=== PATIENT | male | born 1960 | race African-American/Black ===

== ENCOUNTER 2017-07-09 09:16 | Inpatient (IN) | payer MEDICARE ==
[2017-07-09 10:07] LABS: PTT 30.9 SEC (22.9-36.1); Prothrombin Time 13.5 SEC (12.0-14.7)
[2017-07-09 10:08] LABS: #Basophils 0.1 thou/uL (0.0-0.2); #Eosinphils 0.5 thou/uL (0.0-0.7); #Lymphocytes 1.9 thou/uL (1.20-3.40); #Monocytes 0.6 thou/uL (0.11-0.59); #Neutrophils 3.5 thou/uL (1.40-6.50); %Basophils 1.1 % (0.0-1.0); %Eosinophils 8.2 % (0.0-10.0); %Lymphocytes 28.8 % (21.0-51.0); %Monocytes 8.6 % (0.0-10.0); %Neutrophils 53.3 % (42.0-75.0); Mean Corpuscular HGB CONC 31.8 g/dL (32.0-36.0); Mean Corpuscular Hemoglobin 27.2 pg (27.0-31.0); Mean Corpuscular Volume 85.5 fl (80.0-94.0); Mean Platelet Volume 7.9 fL (7.4-10.4); Platelet Count 232 thou/uL (130-400); RBC Distribution Width 13.1 % (11.5-14.5); Red Blood Cell (RBC) Count 3.67 mill/uL (4.70-6.10); White Blood Cell (WBC) Count 6.5 thou/uL (4.8-10.8)
[2017-07-09 10:20] LABS: ALT (SGPT) Less than 7 U/L (8-55); AST (SGOT) 17 U/L (5-34); Albumin 3.3 g/dL (3.5-5.0); Alkaline Phosphatase 53 U/L (40-150); Anion Gap 18 mmol/L (10-20); BUN (Urea Nitrogen) 73 mg/dL (8.4-25.7); Bilirubin, Total 0.2 mg/dL (0.2-1.2); CK (CPK) 694 U/L (30-200); Calc. Creatinine Clearance 0 mL/min (70-130); Calcium 8.6 mg/dL (7.8-10.44); Carbon Dioxide 16 mmol/L (22-29); Chloride 109 mmol/L (98-107); Estimated GFR-MDRD 6; Globulin 3.2 g/dL (2.4-3.5); Glucose 159 mg/dL (70-105); Potassium 4.5 mmol/L (3.5-5.1); Protein, Total 6.5 g/dL (6.0-8.3); Sodium 138 mmol/L (136-145)
--- NOTE | 2017-07-09 10:30 | ULT ---
BILATERAL RENAL ULTRASOUND: HISTORY: Renal tear. COMPARISON: None. TECHNIQUE: Real-time moon scale and color evaluation of kidneys performed with a curvilinear transducer. FINDINGS: The right kidney measures 10 x 5 x 5.4 cm without mass, hydronephrosis, or calcifications. The prevo id urinary bladder volume is 205 mL. The left kidney measures 10.6 x 5.5 x 5 cm without mass, hydron ephrosis, or abnormal calcification. IMPRESSION: No evidence of obstructive uropathy. POS: [facility]
[2017-07-09 10:49] LABS: Bilirubin Negative (Negative); Blood, Urine Small (Negative); Glucose, Urine (Dipstick) 100 mg/dL (Negative); Leukocyte Negative (Negative); Nitrite Negative (Negative); Protein, Urine (Dipstick) > or equal to 300 mg/dL (Neg-Trace); Urobilinogen 0.2 mg/dL (0.2-1.0)
[2017-07-09 10:57] LABS: Clarity CLEAR (Clear)
[2017-07-09 10:58] LABS: WBC/HPF 0-3 HPF (0-3)
[2017-07-09 10:59] LABS: Bacteria/HPF 1+ HPF (None Seen); Hyaline Casts/LPF NONE SEEN LPF (0-3 Hyaline)
--- NOTE | 2017-07-09 13:23 | HP ---
CHIEF COMPLAINT: Abnormal labs. HISTORY OF PRESENT ILLNESS: This is a 56-year-old pleasant gentleman who was apparently in his usual state of health came into the hospital because he was sent by Dr. Ortiz because of abnormal kidney function. His creatinine had almost doubled and today the values are around 10. So he is going to be admitted for acute on chronic kidney disease and further management of that. He denies any fever, chills, diarrhea, dysuria, polyuria, or abdominal pain at this point. PAST MEDICAL HISTORY: Significant for hyperlipidemia, hypertension, diabetes, CVA with residual righ t-sided hemiparesis. PAST SURGICAL HISTORY: Significant for some kind of neck surgery. ALLERGIES: TRAMADOL. SOCIAL HISTORY: Does not smoke, drink or do recreational drugs. FAMILY HISTORY: Negative for diabetes and hypertension. MEDICATIONS: Please see MAR. REVIEW OF SYSTEMS: Significant for no fever, no chills, no headache, no appetite, no hearing loss, n o latencies. No cough, no chest pain, diarrhea, dysuria, or polyuria. No memory or mood changes. N o neck pain. PHYSICAL EXAMINATION: VITAL SIGNS: Blood pressure 179/59, pulse is 84, respirations 18, satting 98% on room air. GENERAL: The patient is lying in bed, no apparent distress. HEENT: Atraumatic and normocephalic. Pupils are equal, round, react to light. Extraocular movement s intact. Mucous membranes are moist. NECK: No JVD. CHEST: Breath sounds heard. There are no rales or rhonchi. HEART: S1, S2, no murmurs or gallops. ABDOMEN: Soft. EXTREMITIES: No cyanosis, clubbing, edema. Distal pulses present. NEUROLOGIC: Alert, awake, oriented. No cranial deficits. No sensorimotor deficits. LABORATORY DATA AND IMAGING DATA: Creatinine is 10. Potassium is 4.5. WBC count is 6.5, hemoglobin is 10. Renal ultrasound shows no evidence of obstructive uropathy. ASSESSMENT AND PLAN: 1. Acute renal failure on chronic kidney disease. 2. Gentle hydration. Follow with Dr. Ortiz's pain. 3. Diabetes mellitus put patient on insulin sliding scale. 4. Hypertension, stable. 5. Hyperlipidemia, stable. 6. Cerebrovascular accident with residual right-sided hemiparesis, stable. 7. Sequential compression devices for deep venous thrombosis prophylaxis. I will work with Dr. Siva edwards in further caring for the patient.
[2017-07-09] MEDS ORDERED: Acetaminophen 325 MG TAB PO PRN ×2 (14:37→14:41)
[2017-07-09] MEDS ORDERED: Ondansetron ODT 4 MG TAB SL PRN (14:37)
[2017-07-09] MEDS ORDERED: Ondansetron HCl/PF 4 MG/2 ML Vial IVP PRN ×2 (14:37→14:41)
[2017-07-09] MEDS ORDERED: Sodium Chloride 0.9% 1,000 ML IV SCH ×2 (14:37→14:41)
[2017-07-09] MEDS ORDERED: Dextrose 5% in Water 1,000 ML IV PRN (14:41)
[2017-07-09] MEDS ORDERED: Calcium Carbonate 500 MG ChewTAB PO PRN (14:41)
[2017-07-09] MEDS ORDERED: Dextrose 50% Abboject 50 ML SYRINGE SLOW IVP PRN (14:41)
[2017-07-09] MEDS: Sodium Chloride 0.9% 1,000 ML IV SCH ×2 (15:13→22:16)
[2017-07-09 15:15] LABS: Hemoglobin A1c 6.3 % (4.0-6.0)
[2017-07-09 15:43] VITALS: BMI 27.2
[2017-07-09 15:56] LABS: Bilirubin Negative (Negative); Blood, Urine Small (Negative); Clarity CLEAR (Clear); Glucose, Urine (Dipstick) 250 mg/dL (Negative); Leukocyte Negative (Negative); Nitrite Negative (Negative); Protein, Urine (Dipstick) > or equal to 300 mg/dL (Neg-Trace); Specific Gravity, Urine 1.021 (1.002-1.036); Urobilinogen 0.2 mg/dL (0.2-1.0); pH, Urine 6.5 (5.0-9.0)
[2017-07-09 16:00] LABS: Bacteria/HPF None Seen HPF (None Seen); Hyaline Casts/LPF 0-3 HYALINE CAST LPF (0-3 Hyaline); Pathc Cast-AUWi Flag 0.13 (0-2.49); Squamous Epithelial 0-3 HPF (0-3)
[2017-07-09 16:12] LABS: Creatinine, Urine 56.5 mg/dL (63-166); Potassium, Urine 22.6 mmol/L
[2017-07-09] MEDS: Docusate 100 MG CAP PO SCH (22:15)
[2017-07-09] MEDS: cloNIDine 0.1 MG TAB PO PRN (22:15)
[2017-07-09] MEDS: Insulin Detemir 100 UNITS/ML 5 UNITS in Pre-Filled Syringe 1 EACH SC SCH (22:50)
--- NOTE | 2017-07-09 23:16 | ULT ---
VEIN MAPPING OF UPPER EXTREMITIES FOR DIALYSIS ACCESS: 07/09/17 HISTORY: Right arm paralyzed due to stroke. Partially contracted. Dialysis access. COMPARISON: None. TECHNIQUE: Correia scale, color flow, doppler imaging with spectral waveform analysis performed at the left and rig ht upper extremity arterial venous system. RIGHT UPPER EXTREMITY BRACHIAL ARTERY: 4.0 mm RADIAL ARTERY: 2.2 mm ULNAR ARTERY: 2.0 mm CEPHALIC VEIN Proximal Humerus: 4.3 mm Mid Humerus: 3.4 mm Distal Humerus: 4.1 mm Antecubital Fossa: 4.5 mm Proximal Forearm: 2.9 mm Mid Forearm: 2.1 mm Distal Forearm: 1.6 mm BASILIC VEIN Proximal Humerus: 7.8 mm Mid Humerus: 4.7 mm Distal Humerus: 4.3 mm Antecubital Fossa: 5.2 mm Proximal Forearm: 1.4 mm Mid Forearm: 1.0 mm Distal Forearm: Not seen LEFT UPPER EXTREMITY BRACHIAL ARTERY: 5.1 mm RADIAL ARTERY: 2.4 mm ULNAR ARTERY: 2.7 mm CEPHALIC VEIN Proximal Humerus: 1.1 mm Mid Humerus: 1.5 mm Distal Humerus: 2.1 mm Antecubital Fossa: 3.3 mm Proximal Forearm: 2.9 mm Mid Forearm: 2.6 mm Distal Forearm: 1.7 mm BASILIC VEIN Proximal Humerus: 6.5 mm Mid Humerus: 4.9 mm Distal Humerus: 4.8 mm Antecubital Fossa: 6.6 mm Proximal Forearm: 2.4 mm Mid Forearm: 2.1 mm Distal Forearm: 2.4 mm IMPRESSION: Venous mapping as above. POS: [facility]
--- NOTE | 2017-07-10 00:41 | CON ---
DATE OF CONSULTATION: 07/09/2017 CONSULTING PHYSICIAN: Arslan Mejia MD REASON FOR CONSULTATION: Abnormal labs. HISTORY OF PRESENT ILLNESS: A 56-year-old male who was found to have abnormal labs and was sent to [facility]. The patient is having worsening renal function. No chest pain, palpitation, no shortness of breath, no nausea, vomiting, no recent injury, but he has been having worsening renal function. He h as a significant amount of proteinuria, most likely from diabetes. PAST MEDICAL HISTORY: Positive for chronic kidney disease, stage 5; hyperlipidemia; hypertension, ty pe 2 diabetes; CVA. PAST SURGICAL HISTORY: Neck surgery. HOME MEDICATIONS: Pending. ALLERGIES: TRAMADOL. SOCIAL HISTORY: No smoking, alcohol, or illicit drugs abuse. FAMILY HISTORY: Positive for diabetes. REVIEW OF SYSTEMS: The following complete review of systems was negative, unless otherwise mentioned in the HPI or below: Constitutional: Weight loss or gain, ability to conduct usual activities. Sk in: Rash, itching. Eyes: Double vision, pain. ENT/Mouth: Nose bleeding, neck stiffness, pain, te nderness. Cardiovascular: Palpitations, dyspnea on exertion, orthopnea. Respiratory: Shortness of breath, wheezing, cough, hemoptysis, fever or night sweats. Gastrointestinal: Poor appetite, abdom inal pain, heartburn, nausea, vomiting, constipation, or diarrhea. Genitourinary: Urgency, frequenc y, dysuria, nocturia. Musculoskeletal: Pain, swelling. Neurologic/Psychiatric: Anxiety, depressio n. Allergy/Immunologic: Skin rash, bleeding tendency. PHYSICAL EXAMINATION: GENERAL: This is a well-built male, in no apparent distress. VITAL SIGNS: Temperature 97.9, pulse 85, respiratory rate 18, blood pressure 170/88. HEENT: Atraumatic, normocephalic. Oral mucosa is moist. NECK: Supple, no masses. CARDIOVASCULAR: S1, S2 heart. Rate and rhythm regular. RESPIRATORY: Clear to auscultation. GENITOURINARY: Abdomen is soft. MUSCULOSKELETAL: No tenderness or edema. DERMATOLOGIC: No skin rash. NEUROLOGIC: Alert, awake. PSYCHIATRIC: Mood and affect normal. LABORATORY DATA: Hemoglobin is 10.0, potassium is 4.5, BUN is 73, creatinine is 10.7. ASSESSMENT AND PLAN: 1. Acute kidney injury on chronic kidney disease, stage 5. Renal function with worsening. I agree with hydration and check renal ultrasound to rule out obstruction. If no significant improvement wit h hydration, patient might need renal replacement therapy, need a catheter placement in the morning. 2. We will keep him n.p.o. after midnight. 3. Acidosis, severe, most likely from renal failure. 4. Anemia, mild. 5. Hypoalbuminemia. 6. Significant proteinuria. 7. Diabetic nephropathy. 8. Edema, controlled. 9. Hypertension. Continue to titrate medications. Plan is to hydrate the patient with no significant improvement in renal function, we will arrange for dialysis. We will continue to follow.
[2017-07-10] MEDS: cloNIDine 0.1 MG TAB PO PRN ×2 (04:03→09:53)
[2017-07-10 04:44] LABS: Albumin 2.6 g/dL (3.5-5.0); Anion Gap 15 mmol/L (10-20); BUN (Urea Nitrogen) 68 mg/dL (8.4-25.7); BUN/Creatinine Ratio 6.45; Calc. Creatinine Clearance 9 mL/min (70-130); Calcium 7.9 mg/dL (7.8-10.44); Carbon Dioxide 15 mmol/L (22-29); Chloride 111 mmol/L (98-107); Estimated GFR-MDRD 6; Glucose 123 mg/dL (70-105); Phosphorus 6.5 mg/dL (2.3-4.7); Potassium 4.4 mmol/L (3.5-5.1); Sodium 137 mmol/L (136-145)
[2017-07-10 04:58] LABS: #Basophils 0.1 thou/uL (0.0-0.2); #Eosinphils 0.5 thou/uL (0.0-0.7); #Lymphocytes 2.1 thou/uL (1.20-3.40); #Monocytes 0.6 thou/uL (0.11-0.59); #Neutrophils 2.6 thou/uL (1.40-6.50); %Basophils 1.4 % (0.0-1.0); %Eosinophils 8.6 % (0.0-10.0); %Lymphocytes 35.9 % (21.0-51.0); %Monocytes 10.8 % (0.0-10.0); %Neutrophils 43.4 % (42.0-75.0); Hemoglobin 8.7 g/dL (14.0-18.0); Mean Corpuscular HGB CONC 31.6 g/dL (32.0-36.0); Mean Corpuscular Hemoglobin 27.2 pg (27.0-31.0); Mean Corpuscular Volume 86.1 fl (80.0-94.0); Mean Platelet Volume 8.2 fL (7.4-10.4); Platelet Count 222 thou/uL (130-400); RBC Distribution Width 13.1 % (11.5-14.5); Red Blood Cell (RBC) Count 3.19 mill/uL (4.70-6.10); White Blood Cell (WBC) Count 5.9 thou/uL (4.8-10.8)
[2017-07-10] MEDS ORDERED: Heparin 10,000 UNITS/ 10 ML VIAL ONE (06:46)
[2017-07-10] MEDS ORDERED: Ondansetron HCl/PF 4 MG/2 ML Vial ONE (06:46)
[2017-07-10] MEDS ORDERED: PROPOFOL 200 MG/20 ML VIAL ONE (06:46)
[2017-07-10] MEDS ORDERED: CEFAZOLIN/Water 2 GM/20 ML SYRINGE SLOW IVP SCH (08:15)
--- NOTE | 2017-07-10 09:12 | PRG ---
DATE OF SERVICE: 07/10/2017 SUBJECTIVE: This is a 56-year-old gentleman being seen for CKD stage 5. The patient denies any naus ea or vomiting, but has poor appetite. PHYSICAL EXAMINATION: GENERAL: Patient is awake, alert. VITAL SIGNS: Afebrile, pulse 76, breathing at 16, blood pressure 141/68. HEAD/NECK: Normocephalic. Atraumatic. EYES: EOMI. No deformity. EARS: Clear. No ulcers. NOSE: Intact. No lesions. MOUTH: Clear. No discharge. THROAT: Clear. No exudate. LUNGS: Clear. No crackles. CARDIAC: S1, S2. No rub. ABDOMEN: Benign. BS+. GENITALIA/RECTUM: Mora absent. BACK/EXTREMITIES: Edema 0+ Ulcer- NEUROLOGICAL: Alert and motor intact. SKIN: Rash- Bruise- LYMPHATICS: Edema- Ulcer- LABORATORY DATA: Show hemoglobin 8.7, bicarbonate 15, creatinine 10.5. ASSESSMENT AND PLAN: 1. Chronic kidney disease stage 5, glomerular filtration rate and poor appetite. We will plan dialy sis. 2. Acidosis, plan dialysis. 3. Hypertension, plan ultrafiltration. 4. Anemia, stable. Risks versus benefits of dialysis were discussed and dialysis will be initiated after catheter will be placed. The patient has consented.
[2017-07-10] MEDS: Insulin Detemir 100 UNITS/ML 5 UNITS in Pre-Filled Syringe 1 EACH SC SCH ×2 (09:13→20:31)
[2017-07-10] MEDS: Docusate 100 MG CAP PO SCH ×2 (09:13→20:30)
--- NOTE | 2017-07-10 10:04 | HP ---
HISTORY OF PRESENT ILLNESS: Mr. Terell Jensen is a 56-year-old black male, disabled from cervical spi ne after cervical spine surgery many years ago and from his prior stroke in 2006 left him with a righ t hemiparesis. He is able to walk with an ankle brace, but has a permanent weakness of his right arm and he is unable to use his right hand. He was right handed prior to this stroke, but now he is melanie dawood depended on his left arm. He has a diabetic and hypertensive nephropathy leading to chronic k idney disease and end-stage renal disease. I have been consulted by Dr. Frias and Dr. Ortiz to see him regarding dialysis access. Patient has an IV in his left hand. GFR is 10. Plan is to place a r ight arm fistula and/or less likely prosthetic graft. We would plan to place a hemodialysis catheter and possible central line. The patient understands the risk and benefits of this and consents. ALLERGIES: TRAMADOL, pruritus. TOBACCO: None. ALCOHOL: None. MEDICATIONS: None listed. He is as an outpatient. In the hospital, he take insulin b.i.d., Colace, clonidine 0.1 mg q.6 hours p.r.n., calcium carbonate 1000 mg p.o. q.4 hours p.r.n., Tylenol p.r.n., sliding scale insulin, Zofran. PAST SURGICAL HISTORY: Cervical spine surgery. He had a colonoscopy in 2012 that was normal. Chron ic kidney disease, diabetes mellitus since 29 years of age, hypertension, prior stroke in 2006 left h im with a right hemiparesis, ambulating with a right ankle brace and unable to use his right arm effe ctively and is permanently contracted and he is unable to extend his fingers or thumb completely. REVIEW OF SYSTEMS: Ten point noncontributory. No history of cardiac problems. PHYSICAL EXAMINATION: VITAL SIGNS: Temperature 97.8, 74, 176/83. LUNGS: Clear to auscultation. CARDIAC: Regular rate and rhythm without murmur or gallop. ABDOMEN: Soft, nontender, no evident hernias. EXTREMITIES: Weak right upper extremity, permanent disability deformity of his right hand, unable to extend his right fingers and thumb. Palpable radial pulses. IV left hand. No ankle edema. LABORATORY DATA: White count 5, hemoglobin 8.7, sodium 137, potassium 4.4, BUN 68, creatinine 10.55. GFR 6. ASSESSMENT AND PLAN: 1. End-stage renal disease. We will plan placement of right arm fistula. His ultrasound vein mappi ng shows this to be superior veins. 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 Risk of infection, bleeding, reoperation explained. 2. Plan placement of hemodialysis catheter and possible central line. 3. End-stage renal disease. 4. Prior stroke as described. 5. Hypertension. 6. Diabetes mellitus. 7. Colonoscopy in 2012, normal.
[2017-07-10] MEDS ORDERED: Bupivacaine/Epinephrine 0.25% 30 ML VIAL ONE (10:17)
[2017-07-10] MEDS ORDERED: Heparin 5,000 UNITS/ML VIAL ONE (10:17)
[2017-07-10] MEDS ORDERED: Lidocaine 2% PF 5 ML VIAL ONE (10:17)
[2017-07-10] MEDS ORDERED: Heparin 10,000 UNITS/1 ML VIAL ONE (10:19)
[2017-07-10] MEDS ORDERED: Protamine Sulfate 50 MG/5 ML VIAL ONE ×2 (10:19→12:43)
[2017-07-10] MEDS ORDERED: Tuberculin PPD 0.1 ML VIAL I-DERMAL SCH (11:00)
[2017-07-10] MEDS ORDERED: Sodium Chloride 0.9% 10 ML ONE (11:16)
[2017-07-10] MEDS ORDERED: CEFAZOLIN/Water 2 GM/20 ML SYRINGE ONE (11:19)
[2017-07-10] MEDS ORDERED: Fentanyl 100 MCG/2 ML VIAL ONE (11:34)
[2017-07-10] MEDS ORDERED: Acetaminophen 500 MG TAB PO PRN (12:59)
[2017-07-10] MEDS ORDERED: Promethazine HCl 25 MG/ML VIAL SLOW IVP PRN (13:01)
[2017-07-10] MEDS ORDERED: Promethazine HCl 25 MG/ML VIAL IM PRN (13:01)
[2017-07-10] MEDS ORDERED: Ondansetron HCl/PF 4 MG/2 ML Vial IVP PRN (13:01)
--- NOTE | 2017-07-10 13:33 | OP ---
DATE OF PROCEDURE: 07/10/2017 PREOPERATIVE DIAGNOSES: End-stage renal disease with prior stroke and right hemiparesis. POSTOPERATIVE DIAGNOSES: End-stage renal disease with prior stroke and right hemiparesis. PROCEDURE: Placement of right IJ cuffed tunneled hemodialysis catheter, ultrasound fluoroscopy used, right Madonna fistula in cephalic vein to radial artery with outflow calibration 4 mm coronary amy bourne SURGEON: Nadir Licea M.D. ANESTHESIA: LMA. Local 0.25% Marcaine with epinephrine, 30 mL, mixed with 2% Xylocaine, 10 mL. PROCEDURE IN DETAIL: The patient was taken to the operating room where under general LMA anesthesia, neck, chest and right upper extremity was prepared with ChloraPrep, draped in routine fashion. Loca l anesthetic infiltrated into skin and subcutaneous tissue about the operative sites. Using ultrasou nd guidance, right internal jugular vein was cannulated with trocar catheter. J-wire threaded. Troc ar catheter removed. Skin incised and enlarged sharply and stab incision made over the right chest i nfraclavicular and using the tunneling device, precurved angiodynamics precurved dialysis catheter tu nneled between the two incisions, placing the fabric cuff beneath the skin exit site and securing the catheter with 2 interrupted sutures of 3-0 nylon. Smaller and medium sized dilators placed over the J-wire into the internal jugular vein and removed. Dilator and pull-away sheath placed into the sup erior vena cava and dilator and J-wire removed. Catheter placed with a pull-away sheath. Pull-away sheath removed. Platysma approximated with 4-0 Monocryl, skin with subdermal 4-0 Monocryl and DermaG lue applied. Each port aspirated blood and flushed with saline solution and heparinized saline solut ion 1000 units of heparin per mL indicated volume of the port. Sterile dressings applied. The patie nt tolerated the procedure well. Incision was made between the radial artery and cephalic vein and carried down through the skin and s ubcutaneous tissue and the radial artery and cephalic vein dissected free. Stump of the cephalic vei n on the hand side ligated with 4-0 silk tie. Patient given 6000 units of heparin intravenously. Ve in spatulated and interrogated with coronary dilators, passing coronary dilators from a 1.5 to a 4 mm coronary dilator without obstruction. Radial artery was clamped proximally and distally with atraum atic vascular clamp, arteriotomy made sharply and elongated with Garcia scissors for a 2.5 cm anastomo sis created between the end cephalic vein and the radial artery using continuous suture of 6-0 Prolen e. After completing the anastomosis, vascular clamps were released and there was good Doppler signal on the venous outflow in the fistula forearm. Good hemostasis noted. The patient given 25 mg intra venously by Anesthesia. Subcutaneous tissues approximated with 3-0 Monocryl, skin with subdermal 4-0 Monocryl and DermaGlue applied.
--- NOTE | 2017-07-10 14:14 | PDOC.PN ---
- Subjective Encounter Start Date: 07/10/17 Encounter Start Time: 14:13 Patient seen and examined. No new complaints. No overnight events - Objective MAR Reviewed: Yes Vital Signs & Weight: Vital Signs (12 hours) Temp Pulse Resp BP BP Pulse Ox 07/10/17 09:53 194/93 H 07/10/17 08:00 97.8 F 74 14 07/10/17 07:35 97.8 F 74 14 176/83 H 99 07/10/17 06:00 18 07/10/17 04:03 175/68 H 07/10/17 04:00 98 F 77 18 175/84 H Weight Weight 190 lb I&O: 07/09/17 07/10/17 07/11/17 06:59 06:59 06:59 Intake Total 900 Output Total 900 380 Balance 0 -380 Result Diagrams: 07/10/17 03:50 07/10/17 03:50 Additional Labs: Accuchecks 07/09/17 07/09/17 22:43 16:18 POC Glucose 117 H 132 H Phys Exam - Physical Examination Constitutional: NAD HEENT: PERRLA Neck: no JVD Respiratory: no rales Cardiovascular: no significant murmur Gastrointestinal: non-tender Musculoskeletal: pulses present Neurological: normal sensation rt side hemiparesis Psychiatric: A&O x 3 Dx/Plan (1) Renal failure (ARF), acute on chronic Code(s): N17.9 - ACUTE KIDNEY FAILURE, UNSPECIFIED; N18.9 - CHRONIC KIDNEY DISEASE, UNSPECIFIED Status: Acute (2) Diabetes mellitus Code(s): E11.9 - TYPE 2 DIABETES MELLITUS WITHOUT COMPLICATIONS Status: Acute (3) HTN (hypertension) Code(s): I10 - ESSENTIAL (PRIMARY) HYPERTENSION Status: Acute (4) Hyperlipidemia Code(s): E78.5 - HYPERLIPIDEMIA, UNSPECIFIED Status: Acute - Plan * f/u renal plan * going for catheter placement for dialysis
[2017-07-10 15:56] LABS: HBSAg Index 0.21 S/CO (0-0.99); Hep B Surf Ag Non-Reactive S/CO (NonReactive)
--- NOTE | 2017-07-10 16:02 | RAD ---
RADIOGRAPH CHEST 1 VIEW: Date: 07-10-17 Time: 1:16 p.m. HISTORY: 56-year-old male status post central line placement. COMPARISON: 09-27-2009 FINDINGS: There is a new right internal jugular double lumen dialysis catheter with distal tips overlying the u pper SVC and SVC/right subclavian confluence. Another new finding of patchy small airspace density at the medial base of the right lower lobe. Another new finding of transversely oriented density at rig ht mid lung zone, which may represent thickening of the right minor fissure or could represent subseg mental atelectasis. Yet another new finding of moderate sized mass-like opacities at the right latera l mid and lower lung zones, broadly abutting the lateral pleural surface. There are mild focal patchy airspace densities at the medial aspect of the left lower lobe. No cardiomegaly. Lateral costophreni c angles are not effaced. No pulmonary edema. No pneumothorax identified. No mediastinal widening. IMPRESSION: 1. Interval placement of right internal jugular double lumen dialysis catheter. 2. No evidence of pneumothorax. 3. Mild airspace densities at the bases of the bilateral lower lobes, right greater than left. 4. Additional right lateral pleural based densities and a transversely oriented right parahilar densi ty. Etiology of these is uncertain. CT may be useful. KIANNA POS: [facility]
[2017-07-10] MEDS: Sodium Chloride 0.9% 1,000 ML IV SCH (16:13)
[2017-07-10 16:30] LABS: Hep C IgG Ab Reflex HepC Qnt (NonReactive)
[2017-07-10 16:31] LABS: HBSAB Concentration 324.29 mIU/mL; Hep B Core Total Ab Reactive (NonReactive); Hep B Core Total Index 10.72 S/CO (0-0.79); Hep B Surf AB Reactive (NonReactive); Hep C Index 15.11 S/CO (0-0.79)
[2017-07-10] MEDS: hydrALAZINE 20 MG/ML VIAL SLOW IVP PRN (20:30)
[2017-07-11] MEDS: cloNIDine 0.1 MG TAB PO PRN ×3 (04:20→22:27)
[2017-07-11 07:44] LABS: Albumin 2.7 g/dL (3.5-5.0); Anion Gap 17 mmol/L (10-20); BUN (Urea Nitrogen) 71 mg/dL (8.4-25.7); Calc. Creatinine Clearance 9 mL/min (70-130); Carbon Dioxide 15 mmol/L (22-29); Chloride 113 mmol/L (98-107); Estimated GFR-MDRD 6; Glucose 112 mg/dL (70-105); Phosphorus 7.9 mg/dL (2.3-4.7); Potassium 4.5 mmol/L (3.5-5.1); Sodium 140 mmol/L (136-145)
[2017-07-11] MEDS: Docusate 100 MG CAP PO SCH ×2 (09:31→22:26)
[2017-07-11] MEDS: Insulin Detemir 100 UNITS/ML 5 UNITS in Pre-Filled Syringe 1 EACH SC SCH ×2 (09:32→22:26)
--- NOTE | 2017-07-11 10:25 | PDOC.PN ---
- Subjective Encounter Start Date: 07/11/17 Encounter Start Time: 10:24 Patient seen and examined. No new complaints. No overnight events going for dialysis - Objective MAR Reviewed: Yes Vital Signs & Weight: Vital Signs (12 hours) Temp Pulse Resp BP BP Pulse Ox 07/11/17 09:36 180/84 H 07/11/17 05:41 80 171/80 H 07/11/17 04:00 98.6 F 87 16 194/90 H 94 L Weight Weight 190 lb I&O: 07/10/17 07/11/17 07/12/17 06:59 06:59 06:59 Intake Total 900 Output Total 900 1080 Balance 0 -1080 Result Diagrams: 07/10/17 03:50 07/11/17 05:56 Additional Labs: Accuchecks 07/11/17 07/10/17 07/10/17 05:31 20:13 14:15 POC Glucose 110 160 H 122 H Phys Exam - Physical Examination Constitutional: NAD HEENT: PERRLA Neck: no nodes tunnel cath in place Respiratory: no wheezing Cardiovascular: no significant murmur Gastrointestinal: non-tender Musculoskeletal: pulses present Neurological: moves all 4 limbs Psychiatric: A&O x 3 Dx/Plan (1) Renal failure (ARF), acute on chronic Code(s): N17.9 - ACUTE KIDNEY FAILURE, UNSPECIFIED; N18.9 - CHRONIC KIDNEY DISEASE, UNSPECIFIED Status: Acute (2) Diabetes mellitus Code(s): E11.9 - TYPE 2 DIABETES MELLITUS WITHOUT COMPLICATIONS Status: Acute (3) HTN (hypertension) Code(s): I10 - ESSENTIAL (PRIMARY) HYPERTENSION Status: Acute (4) Hyperlipidemia Code(s): E78.5 - HYPERLIPIDEMIA, UNSPECIFIED Status: Acute - Plan * dialysis per renal
[2017-07-11] MEDS: Sodium Chloride 0.9% 1,000 ML IV SCH (11:44)
[2017-07-11] MEDS ORDERED: Lisinopril 5 MG TAB PO SCH (12:00)
--- NOTE | 2017-07-11 12:42 | PRG ---
DATE OF SERVICE: 07/11/2017 SUBJECTIVE: A 56-year-old gentleman being seen for end-stage renal disease. Patient denies any naus ea, vomiting or chest pain. PHYSICAL EXAMINATION: GENERAL: Patient is awake, alert. VITAL SIGNS: Afebrile, pulse 80, breathing at 16, blood pressure 171/80. HEAD/NECK: Normocephalic. Atraumatic. EYES: EOMI. No deformity. EARS: Clear. No ulcers. NOSE: Intact. No lesions. MOUTH: Clear. No discharge. THROAT: Clear. No exudate. LUNGS: Clear. No crackles. CARDIAC: S1, S2. No rub. ABDOMEN: Benign. BS+. GENITALIA/RECTUM: Mora absent. BACK/EXTREMITIES: Edema 0+ Ulcer- NEUROLOGICAL: Alert and motor intact. SKIN: Rash- Bruise- LYMPHATICS: Edema- Ulcer- LABORATORY DATA: Show hemoglobin 8.7. ASSESSMENT AND RECOMMENDATIONS: 1. Stage 6 chronic kidney disease. Continue hemodialysis. 2. Hypertension. Start lisinopril 5 mg daily. 3. Anemia, stable. 4. Hyperkalemia, stable. 5. Metabolic acidosis. Continue dialysis.
[2017-07-11] MEDS: hydrALAZINE 20 MG/ML VIAL SLOW IVP PRN (16:18)
[2017-07-12 05:32] LABS: Albumin 2.5 g/dL (3.5-5.0); Anion Gap 12 mmol/L (10-20); BUN (Urea Nitrogen) 50 mg/dL (8.4-25.7); BUN/Creatinine Ratio 5.74; Calc. Creatinine Clearance 11 mL/min (70-130); Calcium 7.9 mg/dL (7.8-10.44); Carbon Dioxide 22 mmol/L (22-29); Chloride 106 mmol/L (98-107); Estimated GFR-MDRD 8; Glucose 100 mg/dL (70-105); Phosphorus 5.9 mg/dL (2.3-4.7); Potassium 3.8 mmol/L (3.5-5.1); Sodium 136 mmol/L (136-145)
[2017-07-12] MEDS: Docusate 100 MG CAP PO SCH ×2 (07:41→21:00)
[2017-07-12] MEDS: Insulin Detemir 100 UNITS/ML 5 UNITS in Pre-Filled Syringe 1 EACH SC SCH ×2 (07:42→21:03)
[2017-07-12] MEDS ORDERED: Lisinopril 5 MG TAB PO SCH (09:00)
[2017-07-12] MEDS ORDERED: Heparin 1,000 UNITS/ML VIAL ONE (11:11)
[2017-07-12] MEDS: READ PPD TEST SITE PO SCH (11:53)
[2017-07-12] MEDS: hydrALAZINE 20 MG/ML VIAL SLOW IVP PRN (11:53)
[2017-07-12] MEDS ORDERED: Lisinopril 20 MG TAB PO SCH (12:45)
--- NOTE | 2017-07-12 14:23 | PRG ---
DATE OF SERVICE: 07/12/2017 SUBJECTIVE: A 56-year-old gentleman being seen for end-stage renal disease. The patient denies any nausea, vomiting or chest pain. OBJECTIVE: GENERAL: The patient is awake and alert. VITAL SIGNS: Afebrile, pulse 80, breathing at 16, blood pressure 193/88. HEAD/NECK: Normocephalic. Atraumatic. EYES: EOMI. No deformity. EARS: Clear. No ulcers. NOSE: Intact. No lesions. MOUTH: Clear. No discharge. THROAT: Clear. No exudate. LUNGS: Clear. No crackles. CARDIAC: S1, S2. No rub. ABDOMEN: Benign. BS+. GENITALIA/RECTUM: Mora absent. BACK/EXTREMITIES: Edema 0+. Ulcer-. NEUROLOGICAL: Alert and motor intact. SKIN: Rash-. Bruise-. LYMPHATICS: Edema-. Ulcer-. LABORATORY DATA: Showed a hemoglobin of 8.7. ASSESSMENT AND PLAN: 1. Stage 6 chronic kidney disease. Continue hemodialysis. 2. Hypertension. Increase lisinopril to 20 mg daily and plan ultrafiltration. 3. Anemia, stable. 4. Medications based on glomerular filtration rate are appropriate. Discharge planning is in progre ss.
--- NOTE | 2017-07-12 16:21 | PDOC.PN ---
- Subjective Encounter Start Date: 07/12/17 Encounter Start Time: 16:20 Patient seen and examined. No new complaints. No overnight events - Objective MAR Reviewed: Yes Vital Signs & Weight: Vital Signs (12 hours) Temp Pulse Resp BP BP Pulse Ox 07/12/17 13:09 193/88 H 07/12/17 11:53 80 216/100 H 07/12/17 10:33 98 07/12/17 08:23 98 07/12/17 07:51 97.8 F 80 20 07/12/17 07:50 97.8 F 79 20 197/93 H 99 07/12/17 07:41 80 197/93 H 07/12/17 05:45 97.8 F 78 18 175/77 H 98 Weight Weight 190 lb I&O: 07/11/17 07/12/17 07/13/17 06:59 06:59 06:59 Output Total 1080 300 Balance -1080 -300 Result Diagrams: 07/10/17 03:50 07/12/17 04:02 Additional Labs: Accuchecks 07/12/17 07/12/17 07/11/17 11:37 05:40 20:16 POC Glucose 131 H 106 236 H 07/11/17 16:16 POC Glucose 119 H Phys Exam - Physical Examination Constitutional: NAD HEENT: PERRLA Neck: no JVD Respiratory: no wheezing Cardiovascular: no significant murmur Gastrointestinal: non-tender Musculoskeletal: pulses present Neurological: moves all 4 limbs Psychiatric: A&O x 3 Dx/Plan (1) Renal failure (ARF), acute on chronic Code(s): N17.9 - ACUTE KIDNEY FAILURE, UNSPECIFIED; N18.9 - CHRONIC KIDNEY DISEASE, UNSPECIFIED Status: Acute (2) Diabetes mellitus Code(s): E11.9 - TYPE 2 DIABETES MELLITUS WITHOUT COMPLICATIONS Status: Acute (3) HTN (hypertension) Code(s): I10 - ESSENTIAL (PRIMARY) HYPERTENSION Status: Acute (4) Hyperlipidemia Code(s): E78.5 - HYPERLIPIDEMIA, UNSPECIFIED Status: Acute - Plan * continue current mx * case mx to help set up out pt dialysis
[2017-07-12] MEDS: cloNIDine 0.1 MG TAB PO PRN (18:21)
[2017-07-12] MEDS: HumaLOG 300 UNITS/3 ML VIAL SC PRN (21:12)
[2017-07-13 06:18] LABS: Albumin 2.5 g/dL (3.5-5.0); Anion Gap 14 mmol/L (10-20); BUN (Urea Nitrogen) 32 mg/dL (8.4-25.7); BUN/Creatinine Ratio 4.55; Calc. Creatinine Clearance 14 mL/min (70-130); Calcium 8.2 mg/dL (7.8-10.44); Carbon Dioxide 24 mmol/L (22-29); Chloride 104 mmol/L (98-107); Estimated GFR-MDRD 10; Glucose 95 mg/dL (70-105); Phosphorus 5.5 mg/dL (2.3-4.7); Potassium 3.6 mmol/L (3.5-5.1); Sodium 138 mmol/L (136-145)
[2017-07-13] MEDS: Lisinopril 20 MG TAB PO SCH (08:54)
[2017-07-13] MEDS: cloNIDine 0.1 MG TAB PO PRN ×2 (08:54→20:41)
[2017-07-13] MEDS: Docusate 100 MG CAP PO SCH ×2 (08:54→20:33)
[2017-07-13] MEDS: Insulin Detemir 100 UNITS/ML 5 UNITS in Pre-Filled Syringe 1 EACH SC SCH ×2 (09:02→20:33)
[2017-07-13] MEDS: READ PPD TEST SITE PO SCH (09:23)
--- NOTE | 2017-07-13 10:23 | PDOC.PN ---
- Subjective Encounter Start Date: 07/13/17 Encounter Start Time: 10:21 Patient seen and examined. No new complaints. No overnight events ppd positive - Objective MAR Reviewed: Yes Vital Signs & Weight: Vital Signs (12 hours) Temp Pulse Resp BP BP Pulse Ox 07/13/17 08:54 196/91 H 07/13/17 07:40 99.0 F 83 16 196/91 H 97 Weight Weight 190 lb I&O: 07/12/17 07/13/17 07/14/17 06:59 06:59 06:59 Intake Total 720 Output Total 300 Balance -300 720 Result Diagrams: 07/10/17 03:50 07/13/17 05:06 Additional Labs: Accuchecks 07/13/17 07/12/17 07/12/17 05:06 20:14 18:04 POC Glucose 96 212 H 91 07/12/17 11:37 POC Glucose 131 H Phys Exam - Physical Examination Constitutional: NAD HEENT: PERRLA Neck: no JVD Respiratory: no wheezing Cardiovascular: no significant murmur Gastrointestinal: no distention Musculoskeletal: pulses present Neurological: moves all 4 limbs Psychiatric: A&O x 3 Dx/Plan (1) Renal failure (ARF), acute on chronic Code(s): N17.9 - ACUTE KIDNEY FAILURE, UNSPECIFIED; N18.9 - CHRONIC KIDNEY DISEASE, UNSPECIFIED Status: Acute (2) Diabetes mellitus Code(s): E11.9 - TYPE 2 DIABETES MELLITUS WITHOUT COMPLICATIONS Status: Acute (3) HTN (hypertension) Code(s): I10 - ESSENTIAL (PRIMARY) HYPERTENSION Status: Acute (4) Hyperlipidemia Code(s): E78.5 - HYPERLIPIDEMIA, UNSPECIFIED Status: Acute (5) Mild protein-calorie malnutrition Code(s): E44.1 - MILD PROTEIN-CALORIE MALNUTRITION Status: Acute - Plan * f/u cxr * f/u dr morris plan * set up out pt dialysis
--- NOTE | 2017-07-13 11:05 | RAD ---
CHEST ONE VIEW: History: Evaluate for tuberculosis. Comparison: 07-10-17 FINDINGS: Chronic thinking of the white matter fissure is similar. When compared to the prior examination, the opacities in the lower lobes are improving. Central venous catheter is in place with the tip in the m id SVC. IMPRESSION: Improving airspace opacities in the lower lobes. POS: [facility]
[2017-07-13 12:47] LABS: Hep B Surf Ag Non-Reactive S/CO (NonReactive)
[2017-07-13 12:48] LABS: HBSAg Index 0.18 S/CO (0-0.99)
[2017-07-13 12:50] LABS: Hep B Surf AB Reactive (NonReactive); Hep C IgG Ab Reflex HepC Qnt (NonReactive)
[2017-07-13 12:51] LABS: HBSAB Concentration 245.47 mIU/mL; Hep B Core Total Ab Reactive (NonReactive); Hep B Core Total Index 9.89 S/CO (0-0.79)
[2017-07-13 12:52] LABS: Hep C Index 15.26 S/CO (0-0.79)
--- NOTE | 2017-07-13 13:44 | PRG ---
Patient Name: AARON HADLEY Date of service: 07/13/2017 Subjective: Patient was seen and examined at bedside and overnight events noted. Patient denies any shortness of breath or chest pain or palpitation. No history of nausea or vomiting or diarrhea or fever or chills or cramps. Objective: General: This is a 56-year-old male in no apparent distress. Vital signs: Temperature 97, pulse 83, respirations 14, blood pressure 196/91. HEENT: Atraumatic, normocephalic. Oral mucosa is moist. Neck: Supple. Cardiovascular: S1 S2 heard. Rate and rhythm regular. Respiratory: Clear to auscultation. Gastrointestinal: Abdomen is soft. Musculoskeletal: No tenderness. No edema. Dermatologic: No skin rash. Neurologic: Alert and awake and oriented X3. No focal neurologic deficits. Moving all the extremities. Psychiatric: Mood and affect normal. LABORATORY: Potassium 3.6, BUN 32, creatinine 7.03. ASSESSMENT AND PLAN: 1. End-stage renal disease, currently on hemodialysis. Will have geriatric case manager consult for outpatien t. 2. Hypertension, stable. Home medications and monitor, remove fluid with dialysis. 3. Anemia, stable. 4. Edema, controlled. Plan is to continue on dialysis as tolerated.
--- NOTE | 2017-07-13 14:13 | CON ---
DATE OF CONSULTATION: 07/13/2017 REASON FOR CONSULTATION: Positive PPD. HISTORY OF PRESENT ILLNESS: A 56-year-old with a history of type 2 diabetes, prior CVA, right hemiplegia, hypertension, hyperlipidemia, admitted because of worsening renal function. Initial findings in the exam showed BP 179/59, pulse 84, respirations 18, O2 sat 90%. He appeared in no distress. Creatinine was 10 , potassium 4.5. White cell count 6.5. Renal ultrasound with no obstructive uropathy. The patient had placement of a right IJ cuffed tunneled hemodialysis catheter and a fistula placed in the right upper extremity. As part of workup for hemodialysis he had a PPD placed which was clearly positive and we are asked to recommend management. Currently, he is sitting and eating his lunch, he is feeling better. There are no headaches, visual symptoms, sore throat, odynophagia, dysphagia. No chest pain or cough, no sputum production or weight loss. No sweats, no abdominal pain or diarrhea. No genitourinary symptoms. No neurological symptoms except for the chronic right hemiplegia. PAST MEDICAL HISTORY: Type 2 diabetes, hypertension, CVA, chronic right hemiplegia, hyperlipidemia. He had a neck fusion in the past. ALLERGIES: TRAMADOL with rash. SOCIAL HISTORY: Used to work in the [employer] field. He is retired. He lives in the area. , never a smoker. FAMILY HISTORY: Noncontributory. CURRENT MEDICATIONS: Tylenol, Norvasc, Ecotrin, Rocaltrol, Tums. Caltrate, Catapres, Colace, glucagon, Apresoline, insulin, Zestril, Claritin, Zofran, Zocor. PHYSICAL EXAMINATION: VITAL SIGNS: The patient's T-max 99, blood pressure 180/80, pulse 74, respiration 16, O2 sat 98%. SKIN: Shows the surgical sites with the vascular accesses for dialysis. He does not have a Mora catheter. No lymphadenopathy, alopecia. HEENT: Ocular movements are conjugate, conjunctivae normal. Oral cavity normal. NECK: Supple. LUNGS: With symmetric clear breath sounds. HEART: S1, S2, regular rate. No S3 or S4, no murmurs. ABDOMEN: Soft. Not distended or tender. EXTREMITIES: Left upper extremity has a PPD with a clear cut reactivity with induration that is probably at least 18 mm. He has a right hemiplegia as noted before or hemiparesis. LABORATORY: White cell count 5.9, hemoglobin 8.7, platelets 222 with 43% neutrophils. Creatinine 7.0, sodium 138, phosphorus 5.5 and hepatitis core antibody positive, surface antibody positive, hepatitis C positive as well. The patient had a chest x-ray on 07/13/2017 with improving airspace opacities lower lobe which are probably due to edema. ASSESSMENT: Hyperlipidemia, hypertension, diabetes type 2 with end-stage renal disease, starting hemodialysis initially through a tunneled catheter and eventually transitioned to a Madonna fistula. Positive PPD. DISCUSSION: At this point in time, there is no evidence of active tuberculosis and I think it is reasonable to start INH, Rifapentine once weekly. His calculated life-time risk of developing active TB is around 50%. This prophylaxis will be given once a week for 3 months and potential adverse reactions discussed with patient. During the intake profile he will be also on pyridoxine 50 mg daily. MTDD
[2017-07-13] MEDS: hydrALAZINE 25 MG TAB PO SCH ×2 (14:20→20:33)
--- NOTE | 2017-07-13 18:53 | PRG ---
DATE OF SERVICE: 07/13/2017 SUBJECTIVE: Terell Jensen has seen today in follow up after operation on 07/10/2017. Patient on that date had placement of right IJ cuffed tunnel dialysis catheter, right Madonna fistula, 4 mm coronary dilator outflow. The patient is doing well. He has had a stroke on the right arm and has limited mo vement, but is able to move his hand and arm somewhat. His hemodialysis catheter is functioning well . The site looks good. Right arm fistula has a good thrill and bruit. Overall, the patient is doin g well. I have told him to exercise his arm the best that he could. I recommend he follow up with jerrod pierson in 3 or 4 weeks. He will continue dialyzing using his hemodialysis catheter until office visit. A t this point, I will see him as needed. Please call if necessary.
[2017-07-13] MEDS: Simvastatin 40 MG TAB PO SCH (20:33)
[2017-07-14] MEDS: hydrALAZINE 20 MG/ML VIAL SLOW IVP PRN (00:19)
[2017-07-14] MEDS: cloNIDine 0.1 MG TAB PO PRN (04:03)
[2017-07-14 06:32] LABS: Albumin 2.6 g/dL (3.5-5.0); Anion Gap 14 mmol/L (10-20); BUN (Urea Nitrogen) 41 mg/dL (8.4-25.7); BUN/Creatinine Ratio 5.07; Calc. Creatinine Clearance 12 mL/min (70-130); Calcium 8.1 mg/dL (7.8-10.44); Carbon Dioxide 24 mmol/L (22-29); Chloride 103 mmol/L (98-107); Estimated GFR-MDRD 8; Glucose 149 mg/dL (70-105); Phosphorus 5.6 mg/dL (2.3-4.7); Potassium 3.6 mmol/L (3.5-5.1); Sodium 137 mmol/L (136-145)
[2017-07-14] MEDS: hydrALAZINE 25 MG TAB PO SCH ×3 (12:11→21:41)
[2017-07-14] MEDS: Lisinopril 20 MG TAB PO SCH (12:12)
[2017-07-14] MEDS: Aspirin 81 mg Enteric Coated Tablet PO SCH (12:13)
[2017-07-14] MEDS: Amlodipine 10 MG TAB PO SCH (12:14)
[2017-07-14] MEDS: Loratadine 10 MG TAB PO SCH (12:14)
[2017-07-14] MEDS: Docusate 100 MG CAP PO SCH ×2 (12:14→21:41)
[2017-07-14] MEDS: Calcitriol 0.25 MCG CAP PO SCH (12:16)
[2017-07-14] MEDS: Calcium Carbonate 600 MG TAB PO SCH (12:16)
[2017-07-14] MEDS: Insulin Detemir 100 UNITS/ML 5 UNITS in Pre-Filled Syringe 1 EACH SC SCH ×2 (12:17→21:42)
--- NOTE | 2017-07-14 12:28 | PRG ---
DATE OF SERVICE: 07/14/2017 SUBJECTIVE: Patient was seen and examined at bedside and overnight events noted. Patient denies any shortness of breath or chest pain or palpitation. No history of nausea or vomiting or diarrhea or f ever or chills or cramps. OBJECTIVE: GENERAL: This is a well-built male in no apparent distress, seem to have dialysis. VITAL SIGNS: Temperature 97, pulse 80, respiratory rate 18 and blood pressure 180/81. HEENT: Atraumatic and normocephalic. Oral mucosa is moist. NECK: Supple. CARDIOVASCULAR: S1 and S2 heard. Rate and rhythm regular. RESPIRATORY: Clear to auscultation. GASTROINTESTINAL: Abdomen is soft. MUSCULOSKELETAL: No tenderness. No edema. DERMATOLOGIC: No skin rash. NEUROLOGIC: Alert, awake and oriented x3. No focal neurologic deficits. Moving all the extremities . PSYCHIATRIC: Mood and affect normal. LABORATORY DATA: Potassium is 3.6, BUN is 41 and creatinine is 8.0. ASSESSMENT AND PLAN: 1. End-stage renal disease, continue on hemodialysis as tolerated. 2. Hypertension, stable. 3. Anemia. 4. Edema, controlled. 5. Follow with the case management for outpatient placement and we will continue to follow.
[2017-07-14] MEDS: Simvastatin 40 MG TAB PO SCH (21:41)
[2017-07-15] MEDS: Aspirin 81 mg Enteric Coated Tablet PO SCH (08:06)
[2017-07-15] MEDS: Docusate 100 MG CAP PO SCH ×2 (08:06→21:45)
[2017-07-15] MEDS: Loratadine 10 MG TAB PO SCH (08:06)
[2017-07-15] MEDS: Lisinopril 20 MG TAB PO SCH (08:06)
[2017-07-15] MEDS: hydrALAZINE 25 MG TAB PO SCH ×3 (08:06→21:44)
[2017-07-15] MEDS: Amlodipine 10 MG TAB PO SCH (08:07)
[2017-07-15] MEDS: Insulin Detemir 100 UNITS/ML 5 UNITS in Pre-Filled Syringe 1 EACH SC SCH ×2 (08:10→21:44)
[2017-07-15] MEDS: Calcium Carbonate 600 MG TAB PO SCH (11:14)
--- NOTE | 2017-07-15 12:52 | PDOC.PN ---
- Subjective Encounter Start Date: 07/15/17 Encounter Start Time: 07:00 Pt seen for followup re: esrd. Denies chest pain or shortness of breath. No cough. - Objective MAR Reviewed: Yes Vital Signs & Weight: Vital Signs (12 hours) Temp Pulse Resp BP BP BP Pulse Ox 07/15/17 11:45 98.1 F 69 20 175/84 H 98 07/15/17 08:15 98.7 F 79 20 97 07/15/17 08:07 79 163/78 H 07/15/17 08:06 79 163/78 H 07/15/17 07:55 98.7 F 79 20 163/78 H 97 07/15/17 03:41 98.5 F 75 16 164/79 H 97 Weight Weight 179 lb 3.773 oz I&O: 07/14/17 07/15/17 07/16/17 06:59 06:59 06:59 Intake Total 360 Output Total 510 Balance -150 Result Diagrams: 07/10/17 03:50 07/14/17 05:02 Additional Labs: Accuchecks 07/15/17 07/15/17 07/14/17 11:52 05:58 20:44 POC Glucose 159 H 136 H 200 H 07/14/17 16:33 POC Glucose 132 H Phys Exam - Physical Examination Constitutional: NAD HEENT: moist MMs Neck: supple Respiratory: clear to auscultation bilateral Cardiovascular: RRR Gastrointestinal: soft Neurological: moves all 4 limbs Psychiatric: normal affect Dx/Plan (1) ESRD (end stage renal disease) Code(s): N18.6 - END STAGE RENAL DISEASE Status: Acute (2) Status post dialysis Code(s): Z99.2 - DEPENDENCE ON RENAL DIALYSIS Status: Acute (3) Tuberculin skin test (TST) positive Code(s): R76.11 - NONSPECIFIC REACTION TO SKIN TEST W/O ACTIVE TUBERCULOSIS Status: Acute (4) Diabetes mellitus Code(s): E11.9 - TYPE 2 DIABETES MELLITUS WITHOUT COMPLICATIONS Status: Chronic (5) HTN (hypertension) Code(s): I10 - ESSENTIAL (PRIMARY) HYPERTENSION Status: Chronic (6) Hyperlipidemia Code(s): E78.5 - HYPERLIPIDEMIA, UNSPECIFIED Status: Chronic (7) Moderate protein-calorie malnutrition Code(s): E44.0 - MODERATE PROTEIN-CALORIE MALNUTRITION Status: Chronic - Plan PT/OT, DVT proph w/SCDs * . Dialysis per nephrology service. Monitor vital signs, titrate antihypertensives as needed. Continue accuchecks, insulin sliding scale. Appreciate ID service input re: positive TST. Review of Systems - Review of Systems Respiratory: negative: Cough, Dry, Shortness of Breath, Hemoptysis, SOB with Excertion, Pleuritic Pain, Sputum, Wheezing Cardiovascular: negative: chest pain, palpitations, orthopnea, paroxysmal nocturnal dyspnea, edema, light headedness - Medications/Allergies Allergies/Adverse Reactions: Allergies Allergy/AdvReac Type Severity Reaction Status Date / Time tramadol Allergy Verified 07/09/17 15:23 Medications: Current Medications Acetaminophen (Tylenol) 650 mg PO Q4H PRN PRN Reason: Headache/Fever or Pain Acetaminophen (Tylenol) 1,000 mg PO Q6H PRN PRN Reason: Moderate to Severe Pain (6-10) Amlodipine Besylate (Norvasc) 10 mg PO DAILY [facility] Last Admin: 07/15/17 08:07 Dose: 10 mg Aspirin (Ecotrin) 81 mg PO DAILY [facility] Last Admin: 07/15/17 08:06 Dose: 81 mg Calcitriol (Rocaltrol) 0.25 mcg PO Q2D@0900 [facility] Last Admin: 07/14/17 12:16 Dose: 0.25 mcg Calcium Carbonate (Tums) 1,000 mg PO Q4H PRN PRN Reason: Heartburn or Indigestion Calcium Carbonate (Caltrate) 600 mg PO DAILY [facility] Last Admin: 07/15/17 11:14 Dose: 600 mg Cholecalciferol (Vitamin D3) 2,000 units PO DAILY [facility] Last Admin: 07/15/17 08:06 Dose: 2,000 units Clonidine (Catapres) 0.1 mg PO Q6H PRN PRN Reason: SBP GREATER THAN 160 Last Admin: 07/14/17 04:03 Dose: 0.1 mg Dextrose/Water (Dextrose 50%) 25 gm SLOW IVP PRN PRN PRN Reason: Hypoglycemia Docusate Sodium (Colace) 100 mg PO BID [facility] Last Admin: 07/15/17 08:06 Dose: 100 mg Glucagon (Glucagon) 1 mg IM PRN PRN PRN Reason: Hypoglycemia Hydralazine HCl (Apresoline) 10 mg SLOW IVP Q4H PRN PRN Reason: SBP Greater Than 180 Last Admin: 07/14/17 00:19 Dose: 10 mg Hydralazine HCl (Apresoline) 25 mg PO TID [facility] Last Admin: 07/15/17 08:06 Dose: 25 mg Dextrose/Water (D5w) 1,000 mls @ 0 mls/hr IV .Q0M PRN; As Directed PRN Reason: Hypoglycemia Insulin Detemir 5 units/ (Miscellaneous Medication) 0.05 mls @ 0 mls/hr SC BID [facility] Last Admin: 07/15/17 08:10 Dose: 0.05 mls Insulin Human Lispro (Humalog) 0 units SC .MODERATE SLIDING SC PRN PRN Reason: Moderate Correctional Scale Last Admin: 07/12/17 21:12 Dose: 4 unit Lisinopril (Zestril) 20 mg PO DAILY [facility] Last Admin: 07/15/17 08:06 Dose: 20 mg Loratadine (Claritin) 10 mg PO QAM [facility] Last Admin: 07/15/17 08:06 Dose: 10 mg Metoprolol Succinate (Toprol Xl) 50 mg PO DAILY [facility] Last Admin: 07/15/17 08:06 Dose: 50 mg Ondansetron HCl (Zofran) 4 mg IVP Q6H PRN PRN Reason: Nausea/Vomiting Simvastatin (Zocor) 40 mg PO QPM [facility] Last Admin: 07/14/17 21:41 Dose: 40 mg
--- NOTE | 2017-07-15 21:30 | PRG ---
DATE OF SERVICE: 07/15/2017 SUBJECTIVE: Patient was seen and examined at bedside and overnight events noted. Patient denies any shortness of breath or chest pain or palpitation. No history of nausea or vomiting or diarrhea or fever or chills or cramps. OBJECTIVE: GENERAL: This is a well-built male in no apparent distress. VITAL SIGNS: Temperature 98.4, pulse 69, respiratory rate 20, pressure 175/84. HEENT: Atraumatic, normocephalic. Oral mucosa is moist. NECK: Supple. CARDIOVASCULAR: S1, S2 heard. Rate and rhythm regular. RESPIRATORY: Clear to auscultation. GASTROINTESTINAL: Abdomen is soft. MUSCULOSKELETAL: No tenderness. No edema. DERMATOLOGIC: No skin rash. NEUROLOGIC: Alert and awake and oriented x3. No focal neurologic deficits. Moving all the extremities. PSYCHIATRIC: Mood and affect normal. LABORATORY DATA: No labs or tests available. ASSESSMENT AND PLAN: 1. End-stage renal disease, continue on hemodialysis as tolerated. 2. Hypertension. 3. Anemia. 4. Edema. Patient will have dialysis as tolerated. MTDD
[2017-07-15] MEDS: Simvastatin 40 MG TAB PO SCH (21:44)
[2017-07-16] MEDS: Insulin Detemir 100 UNITS/ML 5 UNITS in Pre-Filled Syringe 1 EACH SC SCH ×2 (11:35→21:12)
[2017-07-16] MEDS: Docusate 100 MG CAP PO SCH ×2 (11:36→21:14)
[2017-07-16] MEDS: Aspirin 81 mg Enteric Coated Tablet PO SCH (11:36)
[2017-07-16] MEDS: hydrALAZINE 25 MG TAB PO SCH ×3 (11:36→21:14)
[2017-07-16] MEDS: Lisinopril 20 MG TAB PO SCH (11:36)
[2017-07-16] MEDS: Loratadine 10 MG TAB PO SCH (11:36)
[2017-07-16] MEDS: Amlodipine 10 MG TAB PO SCH (11:36)
[2017-07-16] MEDS: Calcium Carbonate 600 MG TAB PO SCH (11:37)
[2017-07-16] MEDS: Calcitriol 0.25 MCG CAP PO SCH (11:37)
--- NOTE | 2017-07-16 14:05 | PDOC.PN ---
- Subjective Encounter Start Date: 07/16/17 Encounter Start Time: 07:00 Pt seen for followup re: end stage renal disease. Denies chest pain, shortness of breath, fevers or chills. - Objective MAR Reviewed: Yes Vital Signs & Weight: Vital Signs (12 hours) Temp Pulse Resp BP BP BP Pulse Ox 07/16/17 11:40 98.8 F 80 16 161/81 H 100 07/16/17 11:36 83 181/85 H 07/16/17 08:00 97.8 F 83 16 96 07/16/17 04:00 97.8 F 83 16 150/71 H 97 Weight Weight 179 lb 3.773 oz I&O: 07/15/17 07/16/17 07/17/17 06:59 06:59 06:59 Intake Total 1660 Balance 1660 Result Diagrams: 07/10/17 03:50 07/14/17 05:02 Additional Labs: Accuchecks 07/16/17 07/16/17 07/15/17 11:38 05:25 20:15 POC Glucose 91 119 H 159 H 07/15/17 16:18 POC Glucose 159 H Phys Exam - Physical Examination Constitutional: NAD HEENT: moist MMs Neck: supple Respiratory: clear to auscultation bilateral Cardiovascular: RRR Gastrointestinal: soft Neurological: moves all 4 limbs Psychiatric: normal affect Dx/Plan (1) ESRD (end stage renal disease) Code(s): N18.6 - END STAGE RENAL DISEASE Status: Acute (2) Status post dialysis Code(s): Z99.2 - DEPENDENCE ON RENAL DIALYSIS Status: Acute (3) Tuberculin skin test (TST) positive Code(s): R76.11 - NONSPECIFIC REACTION TO SKIN TEST W/O ACTIVE TUBERCULOSIS Status: Acute (4) Diabetes mellitus Code(s): E11.9 - TYPE 2 DIABETES MELLITUS WITHOUT COMPLICATIONS Status: Chronic (5) HTN (hypertension) Code(s): I10 - ESSENTIAL (PRIMARY) HYPERTENSION Status: Chronic (6) Hyperlipidemia Code(s): E78.5 - HYPERLIPIDEMIA, UNSPECIFIED Status: Chronic (7) Moderate protein-calorie malnutrition Code(s): E44.0 - MODERATE PROTEIN-CALORIE MALNUTRITION Status: Chronic - Plan DVT proph w/SCDs * . Dialysis per nephrology service. Awaiting dialysis chair. Review of Systems - Review of Systems Respiratory: negative: Cough, Dry, Shortness of Breath, Hemoptysis, SOB with Excertion, Pleuritic Pain, Sputum, Wheezing Cardiovascular: negative: chest pain, palpitations, orthopnea, paroxysmal nocturnal dyspnea, edema, light headedness - Medications/Allergies Allergies/Adverse Reactions: Allergies Allergy/AdvReac Type Severity Reaction Status Date / Time tramadol Allergy Verified 07/09/17 15:23 Medications: Current Medications Acetaminophen (Tylenol) 650 mg PO Q4H PRN PRN Reason: Headache/Fever or Pain Acetaminophen (Tylenol) 1,000 mg PO Q6H PRN PRN Reason: Moderate to Severe Pain (6-10) Amlodipine Besylate (Norvasc) 10 mg PO DAILY [facility] Last Admin: 07/16/17 11:36 Dose: 10 mg Aspirin (Ecotrin) 81 mg PO DAILY [facility] Last Admin: 07/16/17 11:36 Dose: 81 mg Calcitriol (Rocaltrol) 0.25 mcg PO Q2D@0900 [facility] Last Admin: 07/16/17 11:37 Dose: 0.25 mcg Calcium Carbonate (Tums) 1,000 mg PO Q4H PRN PRN Reason: Heartburn or Indigestion Calcium Carbonate (Caltrate) 600 mg PO DAILY [facility] Last Admin: 07/16/17 11:37 Dose: 600 mg Cholecalciferol (Vitamin D3) 2,000 units PO DAILY [facility] Last Admin: 07/16/17 11:36 Dose: 2,000 units Clonidine (Catapres) 0.1 mg PO Q6H PRN PRN Reason: SBP GREATER THAN 160 Last Admin: 07/14/17 04:03 Dose: 0.1 mg Dextrose/Water (Dextrose 50%) 25 gm SLOW IVP PRN PRN PRN Reason: Hypoglycemia Docusate Sodium (Colace) 100 mg PO BID [facility] Last Admin: 07/16/17 11:36 Dose: 100 mg Glucagon (Glucagon) 1 mg IM PRN PRN PRN Reason: Hypoglycemia Guaifenesin/Dextromethorphan (Robitussin Dm) 5 ml PO Q6H PRN PRN Reason: Cough Hydralazine HCl (Apresoline) 10 mg SLOW IVP Q4H PRN PRN Reason: SBP Greater Than 180 Last Admin: 07/14/17 00:19 Dose: 10 mg Hydralazine HCl (Apresoline) 25 mg PO TID [facility] Last Admin: 07/16/17 11:36 Dose: 25 mg Dextrose/Water (D5w) 1,000 mls @ 0 mls/hr IV .Q0M PRN; As Directed PRN Reason: Hypoglycemia Insulin Detemir 5 units/ (Miscellaneous Medication) 0.05 mls @ 0 mls/hr SC BID [facility] Last Admin: 07/16/17 11:35 Dose: 0.05 mls Insulin Human Lispro (Humalog) 0 units SC .MODERATE SLIDING SC PRN PRN Reason: Moderate Correctional Scale Last Admin: 07/12/17 21:12 Dose: 4 unit Lisinopril (Zestril) 20 mg PO DAILY [facility] Last Admin: 07/16/17 11:36 Dose: 20 mg Loratadine (Claritin) 10 mg PO QAM [facility] Last Admin: 07/16/17 11:36 Dose: 10 mg Metoprolol Succinate (Toprol Xl) 50 mg PO DAILY [facility] Last Admin: 07/16/17 11:36 Dose: 50 mg Ondansetron HCl (Zofran) 4 mg IVP Q6H PRN PRN Reason: Nausea/Vomiting Simvastatin (Zocor) 40 mg PO QPM [facility] Last Admin: 07/15/17 21:44 Dose: 40 mg
[2017-07-16] MEDS: HumaLOG 300 UNITS/3 ML VIAL SC PRN (16:28)
[2017-07-16] MEDS: Guaifenesin DM 100-10/5 ML UDCUP PO PRN ×2 (16:31→21:13)
--- NOTE | 2017-07-16 18:10 | PRG ---
DATE OF SERVICE: 07/16/2017 SUBJECTIVE: Patient was seen and examined at bedside and overnight events noted. Patient denies any shortness of breath or chest pain or palpitation. No history of nausea or vomitin g or diarrhea or fever or chills or cramps. OBJECTIVE: GENERAL: This is a well-built male, in no apparent distress. VITAL SIGNS: Temperature 98.0, pulse 80, respiratory rate 16, blood pressure 161/81. HEENT: Atraumatic, normocephalic. Oral mucosa is moist NECK: Supple. CARDIOVASCULAR: S1 and S2 heard. Rate and rhythm regular. RESPIRATORY: Clear to auscultation. GASTROINTESTINAL: Abdomen is soft. MUSCULOSKELETAL: No tenderness. No edema. DERMATOLOGIC: No skin rash. NEUROLOGIC: Alert and awake and oriented X3, No focal neurologic deficits. Moving all the extremitie s. PSYCHIATRIC: Mood and affect normal. LABORATORY DATA: No labs done today. ASSESSMENT AND PLAN: 1. Endstage renal disease, continue dialysis as tolerated and follow with case management for outpat ient placement. 2. Hypertension. 3. Edema. 4. Anemia. Continue ALIS as tolerated. 5. Follow with case management for outpatient placement. We will continue dialysis Thursday, , and Thursday as tolerated. We will follow.
--- NOTE | 2017-07-16 19:39 | EKG ---
Test Reason : PREOP Blood Pressure : / mmHG Vent. Rate : 075 BPM Atrial Rate : 075 BPM P-R Int : 186 ms QRS Dur : 088 ms QT Int : 420 ms P-R-T Axes : 044 032 062 degrees QTc Int : 469 ms Normal sinus rhythm Normal ECG When compared with ECG of 31-MAR-2009 07:40, QT has lengthened Confirmed by DASHA HARRIS (2) on 07/16/2017 7:38:48 PM Referred By: ZAIDA Confirmed By:DASHA HARRIS
[2017-07-16] MEDS: Simvastatin 40 MG TAB PO SCH (21:14)
[2017-07-17] MEDS: Amlodipine 10 MG TAB PO SCH (09:08)
[2017-07-17] MEDS: Loratadine 10 MG TAB PO SCH (09:08)
[2017-07-17] MEDS: Docusate 100 MG CAP PO SCH (09:08)
[2017-07-17] MEDS: Lisinopril 20 MG TAB PO SCH (09:08)
[2017-07-17] MEDS: Aspirin 81 mg Enteric Coated Tablet PO SCH (09:08)
[2017-07-17] MEDS: hydrALAZINE 25 MG TAB PO SCH (09:08)
[2017-07-17] MEDS: Insulin Detemir 100 UNITS/ML 5 UNITS in Pre-Filled Syringe 1 EACH SC SCH (09:09)
[2017-07-17] MEDS: Calcium Carbonate 600 MG TAB PO SCH (09:15)
[2017-07-17] MEDS ORDERED: Heparin 10,000 UNITS/ 10 ML VIAL ONE (10:06)
[2017-07-17] MEDS ORDERED: Heparin 1,000 UNITS/ML VIAL ONE (11:11)
--- NOTE | 2017-07-17 11:24 | PRG ---
Patient Name: AARON HADLEY Date of service: 07/17/2017 Subjective: Patient was seen and examined at bedside and overnight events noted. Patient denies any shortness of breath or chest pain or palpitation. No history of nausea or vomiting or diarrhea or fever or chills or cramps. Objective: General: This is a well-built male in no apparent distress. Vital signs: Temperature 98.1, pulse 70, respiratory rate 18, blood pressure 141/68. HEENT: Atraumatic, normocephalic. Oral mucosa is moist. Neck: Supple. Cardiovascular: S1 S2 heard. Rate and rhythm regular. Respiratory: Clear to auscultation. Gastrointestinal: Abdomen is soft. Musculoskeletal: No tenderness. No edema. Dermatologic: No skin rash. Neurologic: Alert and awake and oriented X3. No focal neurologic deficits. Moving all the extremities. Psychiatric: Mood and affect normal. LABORATORY DATA: None done today. ASSESSMENT AND PLAN: 1. End-stage renal disease, have dialysis today for 2 hours then okay to discharge home. Continue d ialysis at the outpatient facility TTS. 2. Hypertension. 3. Edema. Plan is to continue on dialysis as tolerated.
[2017-07-17 15:53] VITALS: BP 126/64; TEMP 98.4
--- NOTE | 2017-07-17 20:36 | DIS ---
DATE OF ADMISSION: 07/09/2017 DATE OF DISCHARGE: 07/17/2017 PRIMARY CARE PHYSICIAN: Torin Shearer MD DISCHARGE DIAGNOSES: 1. End-stage renal disease. 2. Hemodialysis initiated during this hospitalization. 3. Positive tuberculosis skin test. CONSULTATIONS DURING THIS HOSPITALIZATION: Surgery, Dr. Licea. Nephrology, Dr. Ortiz. Infectiou s Diseases, Dr. Lopez. CONDITION OF PATIENT ON THE DAY OF DISCHARGE: Stable. I assessed Mr. Jensen on the day of discharge . He denies any chest pain or shortness of breath. PHYSICAL EXAMINATION: VITAL SIGNS: Stable. HEART: S1 and S2 are heard, regular. LUNGS: Clear to auscultation bilaterally. DISCHARGE MEDICATIONS: Amlodipine 10 mg daily, aspirin 325 mg daily, calcium carbonate 600 mg daily, cetirizine 10 mg daily, vitamin D3 2000 units daily, Flonase 2 sprays to each naris daily, Humalog insulin as needed, hydralazine 25 mg 3 times a day, Levemir insul in 5 units 2 times a day, losartan/hydrochlorothiazide 100/12.5 mg daily, Toprol-XL 50 mg daily, simv astatin 40 mg daily. PROCEDURES DURING THIS HOSPITALIZATION: On 07/10/2017, the patient had placement of right IJ cuffed tunneled hemodialysis catheter, right Madonna fistula in cephalic vein to the radial artery. HOSPITAL COURSE: Mr. Jensen is a pleasant 56-year-old gentleman who was admitted to [facility] on 07/09/2017 for end-stage renal disease, he was sent to the hospital by his nephr ologist. He was seen by General Surgery Service and underwent the procedure as described above. He was started on hemodialysis. He also had a positive tuberculosis skin test and was seen by Infectiou s Diseases Service. Arrangements were made for him to receive outpatient direct observed therapy. He was in the hospital awaiting dialysis chair. He has been accepted for dialysis on Thursday, , and Thursday. He is receiving dialysis prior to discharge today. His calcitriol and furosemide was discontinued. Many thanks for allowing me to participate in your patient's care. Please feel free to contact me wi th any questions or concerns. On 07/14/2017, he had sodium 137, potassium 3.6, and creatinine 8.09. On 07/10/2017, he had white co unt 5900, hemoglobin 8.7, and platelet count 222,000. DISCHARGE DESTINATION: Home. TOTAL AMOUNT OF TIME SPENT COORDINATING THIS DISCHARGE: 32 minutes.
== END 2017-07-17 16:18 | disposition home or self-care (01) | DRG 673 ==
LOC: ERS 09:16 → ONC 10:55
PROVIDERS: ADMIT Internal Medicine; ATTEND Internal Medicine
PROC: 031B0ZF Bypass Right Radial Artery to Lower Arm Vein, Open Approach (ICD-10-PCS; principal; 2017-07-10)
PROC: 0JH63XZ Insertion of Tunneled Vascular Access Device into Chest Subcutaneous Tissue and Fascia, Percutaneous Approach (ICD-10-PCS; 2017-07-10)
PROC: 02HV33Z Insertion of Infusion Device into Superior Vena Cava, Percutaneous Approach (ICD-10-PCS; 2017-07-10)
PROC: B548ZZA Ultrasonography of Superior Vena Cava, Guidance (ICD-10-PCS; 2017-07-10)
PROC: 5A1D70Z Performance of Urinary Filtration, Intermittent, Less than 6 Hours Per Day (ICD-10-PCS; 2017-07-11)
DX: I12.0 Hypertensive chronic kidney disease with stage 5 chronic kidney disease or end stage renal disease (principal); N18.6 End stage renal disease; E87.2 Acidosis; E44.0 Moderate protein-calorie malnutrition; E11.21 Type 2 diabetes mellitus with diabetic nephropathy; E87.5 Hyperkalemia; I69.351 Hemiplegia and hemiparesis following cerebral infarction affecting right dominant side; E11.22 Type 2 diabetes mellitus with diabetic chronic kidney disease; D64.9 Anemia, unspecified; Z99.2 Dependence on renal dialysis; R76.11 Nonspecific reaction to tuberculin skin test without active tuberculosis; E78.5 Hyperlipidemia, unspecified; E88.09 Other disorders of plasma-protein metabolism, not elsewhere classified; R80.9 Proteinuria, unspecified; Z68.24 Body mass index [BMI] 24.0-24.9, adult
CPT/HCPCS: 36415; 36416; 71045; 76770; 80053; 80069; 81003; 81015; 82550; 82570; 83036; 84133; 85025; 85610; 85730; 86480; 86580; 86704; 86706; 86803; 87340; 90935; 93005; 93010; 93970; A4216; C1752; C1769; G0257; G0365; J0360; J1642; J1644; J1815; J2001; J2405; J2704; J2720; J3010

== ENCOUNTER 2019-03-07 09:15 | Inpatient (IN) | payer MEDICARE ==
--- NOTE | 2019-03-07 10:01 | RAD ---
Exam: Chest one view: HISTORY: Shortness of breath COMPARISON: 02/22/2018 FINDINGS: Bibasilar alveolar parenchymal changes concerning for bilateral lower lobe pneumonia with some left p leural effusion. Abnormal opacity changes in the right perihilar region and mid lung zone which in part appears to be pleural and could represent some loculated pleural fluid or could potentially repr esent an underlying mass. Heart size appears within normal limits. IMPRESSION: Alveolar parenchymal changes developing in both lung bases worse in the left base evidence for bibasi lar pneumonia. Left small pleural effusion. Abnormal more well-defined opacity changes in the right perihilar region and right mid lung zone possibly loculated fluid in the minor fissure versus underly ing pneumonia or atelectasis or possibly underlying mass. Short-term follow-up for clearing.
[2019-03-07 10:04] LABS: #Basophils 0.1 thou/uL (0.0-0.2); #Eosinphils 0.3 thou/uL (0.0-0.7); #Lymphocytes 1.4 thou/uL (1.20-3.40); #Monocytes 0.8 thou/uL (0.11-0.59); #Neutrophils 9.7 thou/uL (1.40-6.50); %Basophils 0.6 % (0.0-1.0); %Eosinophils 2.1 % (0.0-10.0); %Lymphocytes 11.7 % (21.0-51.0); %Monocytes 6.2 % (0.0-10.0); %Neutrophils 79.4 % (42.0-75.0); Hemoglobin 10.9 g/dL (14.0-18.0); Mean Corpuscular HGB CONC 31.2 g/dL (32.0-36.0); Mean Corpuscular Hemoglobin 27.9 pg (27.0-31.0); Mean Corpuscular Volume 89.2 fL (78.0-98.0); Platelet Count 179 thou/uL (130-400); Red Blood Cell (RBC) Count 3.93 mill/uL (4.70-6.10); White Blood Cell (WBC) Count 12.2 thou/uL (4.8-10.8)
[2019-03-07 10:23] LABS: ALT (SGPT) Less than 7 U/L (8-55); AST (SGOT) 13 U/L (5-34); Alkaline Phosphatase 50 U/L (40-150); Anion Gap 19 mmol/L (10-20); BUN (Urea Nitrogen) 43 mg/dL (8.4-25.7); Bilirubin, Total 0.3 mg/dL (0.2-1.2); Calc. Creatinine Clearance 0 mL/min (70-130); Calcium 9.1 mg/dL (7.8-10.44); Carbon Dioxide 27 mmol/L (22-29); Chloride 98 mmol/L (98-107); Estimated GFR-MDRD 7; Globulin 2.7 g/dL (2.4-3.5); Glucose 162 mg/dL (70-105); Potassium 4.4 mmol/L (3.5-5.1); Protein, Total 6.7 g/dL (6.0-8.3); Sodium 140 mmol/L (136-145)
[2019-03-07 10:45] LABS: CKMB 1.3 ng/mL (0-6.6)
--- NOTE | 2019-03-07 11:28 | CT ---
Exam: Chest CT scan with IV contrast: HISTORY: Shortness of breath Moderate bilateral free layering pleural effusions are noted. Confluent alveolar parenchymal change i n the left lower lobe evidence for pneumonia. Minimal patchy parenchymal changes in the right lower lobe possibly representing some subsegmental atelectasis or mild pneumonitis. Scattered interstitial parenchymal changes bilaterally raising concern for bilateral interstitial edema or atypical pneumonia or pneumonitis. Multinodular low-density changes along the right major fissure, evidence fo r loculated pleural fluid. Small hiatal hernia. Small left upper pole renal cyst. IMPRESSION: Bilateral pleural effusions. Bilateral interstitial opacity changes throughout both lungs concerning for edema versus atypical pneumonia or pneumonitis. Confluent parenchymal changes in the left lower lobe evidence for left lower lobe pneumonia. Nodular circumscribed changes in the right midlung zone, evidence for loculated pleural fluid in the major fissure.
[2019-03-07] MEDS ORDERED: Piperacillin/Tazobactam 3.375 GM VIAL ONE (11:41)
[2019-03-07] MEDS ORDERED: Vancomycin HCl 500 MG VIAL ONE ×2 (12:39→12:41)
[2019-03-07] MEDS ORDERED: NIFEdipine XL 30 MG TAB ONE (12:51)
[2019-03-07] MEDS ORDERED: ISOVUE-370 76%-LOCM 1 ML ONE (13:11)
[2019-03-07] MEDS ORDERED: Albuterol Sulfate 1.25 MG/3 ML NEB ONE (13:23)
[2019-03-07] MEDS ORDERED: hydrALAZINE 20 MG/ML VIAL ONE ×2 (13:55→14:50)
[2019-03-07 14:28] LABS: Actual Bicarbonate (HCO3a) 27.6 mEq/L (22-28); Analyzer IN Cardio ER; Base Excess (BEa) 3.1 mEq/L (-2.0 to +3.0); CO2 Tension 41.8 mmHg (35.0-45.0); Calcium, Ionized 1.05 mmol/L (1.12-1.30); Hemoglobin (Hb) 11.9 g/dL (14.0-18.0); O2 Tension (PaO2) 63.4 mmHg (80.0-100.0); pH, Arterial 7.44 (7.35-7.45)
[2019-03-07 14:29] LABS: Puncture Site LRA
[2019-03-07] MEDS ORDERED: Albuterol Sulfate 2.5 mg/3 ml Neb ONE ×2 (14:32)
[2019-03-07] MEDS ORDERED: hydrALAZINE 25 MG TAB ONE (14:56)
[2019-03-07] MEDS ORDERED: Carvedilol 25 MG TAB PO SCH (15:15)
[2019-03-07] MEDS ORDERED: Ondansetron PF 4 MG/2 ML Vial IVP PRN (15:39)
[2019-03-07] MEDS ORDERED: Ondansetron ODT 4 MG TAB PO PRN (15:39)
[2019-03-07] MEDS ORDERED: Acetaminophen 325 MG TAB PO PRN (15:39)
[2019-03-07] MEDS ORDERED: Enoxaparin Sodium 30 MG/0.3 ML SYRINGE SC SCH (15:45)
[2019-03-07] MEDS ORDERED: Aspirin 325 MG TAB PO SCH (15:45)
--- NOTE | 2019-03-07 16:53 | HP ---
PRIMARY CARE PHYSICIAN: Torin Shearer MD CHIEF COMPLAINT: Acute respiratory distress. HISTORY OF PRESENT ILLNESS: Following history was obtained from talking to the patient and spouse as well as review of medical record. The patient due to respiratory distress has BiPAP marked in place, hence limited his ability to talk. The patient reportedly developed suddenly cough and shortness of breath and soon was in respiratory distress. EMS was subsequently called, and on arrival, the patient was found to have SpO2 of 76 on room air. The patient also was noted to be in respiratory distress and was started on non-rebreather oxygen supplementation as SpO2 went up to 98. He was also noted to be tachypneic and tachycardic. The patient who dialyzes Thursday, , and Thursday has been compliant with his treatment with last dialysis being on March 05. The patient denied weight gain or worsening swelling. There was no history of fever, ill feeling, cough, difficulty breathing, or any symptom prior to onset of current shortness of breath. reported that the patient was well when he left for work this morning. There is no history of recreational drug use or smoking. The patient also denied chest pain, headache, dizziness, abdominal pain, leg swelling, or change in mental status. On presentation to the ER, the patient was found to have blood pressure of 221/86 with pulse of 45. He was treated with IV hydralazine. An oxygen supplementation via nasal cannula was continued. He, however, later developed worsening shortness of breath, necessitating commencement of non-invasive respiratory support with BiPAP. PAST MEDICAL HISTORY: 1. Hypertension. 2. Hyperlipidemia. 3. End-stage renal disease, on hemodialysis. 4. Diabetes with diabetic nephropathy. 5. Prior cerebrovascular accident with right-sided residual weakness. 6. Cervical spondylosis with radiculopathy. PAST SURGICAL HISTORY: 1. Cervical spine surgery. 2. Colonoscopy. 3. Right hand AV fistula creation. FAMILY HISTORY: Reviewed, but noncontributory. SOCIAL HISTORY: The patient lives with spouse. The patient used to work in the [employer] field. He is retired currently. He is a never smoker. Denied recreational drug use or alcohol. ALLERGIES: TRAMADOL. HOME MEDICATIONS: 1. Aspirin 81 mg p.o. daily. 2. Simvastatin 10 mg p.o. daily. 3. Vitamin D3 2000 units daily. 4. Prednisone 20 mg p.o. daily. 5. Carvedilol 12.5 mg p.o. b.i.d. 6. Calcium acetate 667 mg t.i.d. 7. Nifedipine 60 mg p.o. daily. 8. Humalog 10 units subcutaneously b.i.d. 9. Levemir 5 units subcutaneously daily p.r.n. 10. Hydralazine 100 mg p.o. t.i.d. REVIEW OF SYSTEMS: Twelve-point review of systems performed was negative other than pertinent positives and negatives included in history of present illness. PHYSICAL EXAMINATION: VITAL SIGNS: Initial vitals on presentation to the ER showed BP of 221/86 respiratory rate 27, SpO2 of 92 on 4 L nasal cannula. Most recent vitals are as follows, BP 211/116, pulse 90, respiratory rate 27, SpO2 of 96% on BiPAP. GENERAL: Middle-aged male, in mild to moderate respiratory distress. BiPAP mask is in place. HEENT: Normocephalic, atraumatic. Oral mucosa is moist. NECK: Supple with good range of motion. No obvious mass or lymphadenopathy appreciated. CARDIOVASCULAR: Regular rhythm with frequent ectopics noted. RESPIRATORY: Fair air entry bilaterally with bibasilar crackles. No rhonchi were appreciated. GI: Full, soft, nontender, nondistended with normal bowel sounds. EXTREMITIES: Fixed flexion deformity of right hand noted. AV fistula on right upper limb noted as well. No edema or erythema was appreciated. CLINICAL STUDY MANAGER: Conscious and alert oriented x3 with appropriate mental status. Cranial nerves 2 through 12 are grossly intact. LABORATORY DATA: CBC showed WBC count of 12.2, hemoglobin of 10.9, MCV of 89.2, platelets of 179. CMP showed sodium 140, potassium 4.4, chloride 98, CO2 of 27, BUN 43, creatinine 9.12, glucose 162, calcium 9.1, total bilirubin 0.3, AST 13, ALT less than 7, alkaline phosphatase 50, total protein 6.7, albumin 4.0, globulin 2.7. Lactic acid is 0.9. Cardiac marker showed CK-MB 1.3, troponin 0.049. Arterial blood gas obtained on BiPAP showed pH of 7.44, pCO2 of 41, pO2 of 63.4. IMAGING STUDIES: Chest x-ray showed alveolar parenchymal changes developing in both lungs, worse in the left, suggestive of bibasilar pneumonia. Left small pleural effusion as well as abnormal well-defined opacity in the right perihilar region and right mid lung zone, possibly loculated fluid in the minor fissure versus underlying pneumonia or atelectasis or possibly underlining mass. CT scan of the chest showed bilateral pleural effusions as well as bilateral interstitial opacity changes throughout both lungs, concerning for edema versus atypical pneumonia or pneumonitis. Confluent parenchymal changes in the left lower lobe evidence for left lower pneumonia. Nodular circumscribed changes in the right mid zone. Evidence for loculated pleural effusion in the major fissure. ASSESSMENT: 1. Acute respiratory failure with hypoxia. Etiology is unclear, but flash pulmonary edema seems more likely in this patient with end-stage renal disease with uncontrolled hypertension and mild troponin elevation. Pneumonia cannot be ruled out, but seems unlikely in the absence of fever and the sudden onset of problem. 2. Flash pulmonary edema in a patient with end-stage renal disease and uncontrolled hypertension. 3. Acute heart failure. 4. Systemic inflammatory response syndrome: Pneumonia versus flash pulmonary edema. 5. Possible pneumonia. 6. Uncontrolled hypertension. 7. End-stage renal disease due to diabetic nephropathy on hemodialysis Thursday, , and Thursday. 8. Diabetic mellitus. 9. Cerebrovascular accident with residual right-sided weakness. PLAN: 1. We will admit the patient to IMCU. 2. We will continue noninvasive respiratory support. 3. We will also continue empiric antibiotic therapy for possible pneumonia. 4. We will get serial troponin to rule in or rule out acute myocardial infarction. 5. We will restart home medications to get BP better controlled. 6. We will also get procalcitonin and BNP. 7. We will consult Cardiology. 8. We will also consult Nephrology for end-stage renal disease management and possible emergent dialysis. 9. We will follow blood cultures. 10. We will get repeat chest x-ray in the morning after dialysis to ascertain presence otherwise of consolidation. 11. Insulin therapy will be continued as well. 12. We will get echocardiogram to assess cardiac function. 13. Code status: Full code. The patient's spouse is the surrogate decision maker. 14. It is anticipated that the patient will be hospitalized for more than 3 midnights. Job ID: [id number]
--- NOTE | 2019-03-07 18:21 | CON ---
DATE OF CONSULTATION: 03/07/2019 CONSULTING PHYSICIAN: Johana Herrera Obi, MD REASON FOR CONSULTATION: End-stage renal disease evaluation and care. REASON FOR ADMISSION: Shortness of breath. HISTORY OF PRESENT ILLNESS: A 58-year-old male with history of end-stage renal disease, hypertension, hyperlipidemia, CVA, came to the hospital with above complaints. The patient was in usual health till this morning and started having chills, cold sweats, and shortness of breath. Family brought him to the hospital. He denies any subjective fever. No nausea or vomiting. No chest pain or palpitation. No abdominal pain. No back pain. No skin rash reported. PAST MEDICAL HISTORY: Positive for end-stage renal disease, hyperlipidemia, hypertension, CVA, type 2 diabetes. PAST SURGICAL HISTORY: Neck surgery, dialysis access placement. HOME MEDICATIONS: Include, 1. Hydralazine. 2. . 3. Losartan. 4. Vitamin D3. 5. Calcium. 6. Aspirin. 7. Amlodipine. ALLERGIES: TRAMADOL. SOCIAL HISTORY: No history of smoking, alcohol, or illicit drug abuse reported. FAMILY HISTORY: Positive for diabetes. REVIEW OF SYSTEMS: CONSTITUTIONAL: Negative for weight loss or gain, ability to conduct usual activities. SKIN: Negative for rash, itching. EYES: Negative for double vision, pain. ENT/MOUTH: Negative for nose bleeding, neck stiffness, pain, tenderness. CARDIOVASCULAR: Negative for palpitations, dyspnea on exertion, orthopnea. RESPIRATORY: Negative for shortness of breath, wheezing, cough, hemoptysis, fever or night sweats. GASTROINTESTINAL: Negative for poor appetite, abdominal pain, heartburn, nausea, vomiting, constipation, or diarrhea. GENITOURINARY: Negative for urgency, frequency, dysuria, nocturia. MUSCULOSKELETAL: Negative for pain, swelling. NEUROLOGIC/PSYCHIATRIC: Negative for anxiety, depression. ALLERGY/IMMUNOLOGIC: Negative for skin rash, bleeding tendency. PHYSICAL EXAMINATION: GENERAL: This is a well-built male, in no apparent distress. VITAL SIGNS: Temperature 98.6, pulse 78, respiratory rate 18, blood pressure 179/89. HEENT: Atraumatic, normocephalic. Oral mucosa moist. NECK: Supple. CV: S1, S2 heard. Rate and rhythm regular. RESPIRATORY: Clear to auscultation. GASTROINTESTINAL: Abdomen is soft. MUSCULOSKELETAL: No tenderness. No edema. DERMATOLOGIC: No skin rash. NEUROLOGIC: Right-sided paresis present. LABORATORY DATA: Hemoglobin is 10.9. PH is 7.44, potassium 4.4, BUN is 43, creatinine is 9.1. IMAGING STUDIES: Chest x-ray with bilateral infiltrates. Chest CT with a bilateral pleural effusion, bilateral opacity, nodular changes in the right midline. ASSESSMENT AND PLAN: 1. End-stage renal disease with hypoxic respiratory failure and possibly secondary to fluid overload. Plan is to have dialysis if tolerated. 2. History of hypertension. We will remove fluid. 3. Edema. Remove fluid. 4. History of anemia. Hemoglobin is acceptable. Plan is to have hemodialysis with fluid removal. Dialysis nurse notified. We will continue to follow. Limit fluid intake, and we will follow. Thank you for the consult. Job ID: [id number]
[2019-03-07 19:57] VITALS: BMI 21.7
[2019-03-07 20:54] LABS: Troponin I 0.047 ng/mL (< 0.028)
[2019-03-07] MEDS ORDERED: hydrALAZINE 25 MG TAB PO SCH (21:00)
[2019-03-08] MEDS ORDERED: Famotidine 20 MG TAB PO SCH (09:00)
[2019-03-08] MEDS ORDERED: Enoxaparin Sodium 30 MG/0.3 ML SYRINGE SC SCH ×2 (09:00)
[2019-03-08] MEDS ORDERED: Carvedilol 6.25 MG TAB PO SCH ×3 (09:00→11:30)
[2019-03-08] MEDS ORDERED: Aspirin 325 mg Enteric Coated Tablet PO SCH (09:00)
[2019-03-08] MEDS ORDERED: hydrALAZINE 25 MG TAB PO SCH (09:00)
[2019-03-08] MEDS ORDERED: NIFEdipine XL 60 MG TAB PO SCH (09:00)
[2019-03-08] MEDS: Famotidine 20 MG TAB PO SCH (10:09)
[2019-03-08] MEDS: Aspirin 325 mg Enteric Coated Tablet PO SCH (10:09)
[2019-03-08] MEDS: NIFEdipine XL 60 MG TAB PO SCH (10:10)
[2019-03-08] MEDS: hydrALAZINE 25 MG TAB PO SCH ×3 (10:10→21:15)
--- NOTE | 2019-03-08 10:17 | RAD ---
FRONTAL VIEW CHEST: INDICATIONS: Pulmonary infiltrates. Followup. COMPARISON: 03/07/2019 FINDINGS: There is a peristent wedge-shaped density in the right mid lung zone. Patchy left perihilar opacity is present, and there has been progression of interstitial prominence bilaterally. The cardiomediast inal silhouette is accentuated by rotation and technique. IMPRESSION: Persistent bilateral pulmonary parenchymal opacities. Continued imaging followup is recommended. POS: [facility]
--- NOTE | 2019-03-08 10:25 | PRG ---
DATE OF SERVICE: 03/08/2019 SUBJECTIVE: Patient was seen and examined at bedside and overnight events noted. Patient denies any shortness of breath or chest pain or palpitation. No history of nausea or vomiting or diarrhea or fever or chills or cramps. OBJECTIVE: GENERAL: This is a well-built male, in no apparent distress. VITAL SIGNS: Temperature 99.2. Heart rate 87. Respiratory rate 18. Blood pressure 168/86. HEENT: Atraumatic, normocephalic. Oral mucosa is moist. NECK: Supple. CARDIOVASCULAR: S1, S2 heard. Rate and rhythm regular. RESPIRATORY: Clear to auscultation. GASTROINTESTINAL: Abdomen is soft. MUSCULOSKELETAL: No tenderness. No edema. DERMATOLOGIC: No skin rash. NEUROLOGIC: Alert and awake and oriented x3. No focal neurologic deficits. Moving all the extremities. PSYCHIATRIC: Mood and affect normal. LABORATORY DATA: Not done today. ASSESSMENT AND PLAN: 1. End-stage renal disease, had dialysis today, tolerated well, feeling much better, wants to go home. 2. History of hypertension. 3. Edema. Remove fluid. 4. History of anemia. Had dialysis yesterday, tolerated well. No need for dialysis. We will continue dialysis on Thursday, , and Thursday. Advised limit fluid intake and go to dialysis and report to dialysis on . We will follow. Job ID: [id number]
[2019-03-08 11:27] LABS: #Basophils 0.1 thou/uL (0.0-0.2); #Eosinphils 0.2 thou/uL (0.0-0.7); #Lymphocytes 1.5 thou/uL (1.20-3.40); #Monocytes 0.8 thou/uL (0.11-0.59); #Neutrophils 3.6 thou/uL (1.40-6.50); %Basophils 0.9 % (0.0-1.0); %Eosinophils 2.9 % (0.0-10.0); %Lymphocytes 24.8 % (21.0-51.0); %Monocytes 13.1 % (0.0-10.0); %Neutrophils 58.3 % (42.0-75.0); Hemoglobin 10.4 g/dL (14.0-18.0); Mean Corpuscular HGB CONC 32.5 g/dL (32.0-36.0); Mean Corpuscular Hemoglobin 28.8 pg (27.0-31.0); Mean Corpuscular Volume 88.4 fL (78.0-98.0); Mean Platelet Volume 8.4 fL (7.4-10.4); Platelet Count 186 thou/uL (130-400); RBC Distribution Width 14.1 % (11.5-14.5); Red Blood Cell (RBC) Count 3.61 mill/uL (4.70-6.10); White Blood Cell (WBC) Count 6.1 thou/uL (4.8-10.8)
[2019-03-08] MEDS ORDERED: Isosorbide Mononitrate (ER) 30 MG TAB PO SCH (11:30)
[2019-03-08 11:52] LABS: Vancomycin, Trough 5.5 ug/mL
--- NOTE | 2019-03-08 12:51 | PDOC.HOSPP ---
- Subjective Encounter Date: 03/08/19 Encounter Time: 11:49 Subjective: 58 y/o male with CVA with residual right hemiparesis, ESRD on HD amongst others admitted due to acute respiratory distress without fever or prior ill feeling. Treated with BIPAP, oxygen and later had HD with UF as tolerated with improvement. Now off oxygen and BIPAP. Remained afebrile. - Objective Vital Signs & Weight: Vital Signs (12 hours) Pulse Pulse Pulse Resp BP BP BP 03/08/19 12:18 149/77 H 03/08/19 10:28 86 134/116 H 167/88 H 03/08/19 10:10 89 162/79 H 03/08/19 10:08 162/79 H 03/08/19 09:24 91 88 180/89 H 169/85 H 03/08/19 08:00 03/08/19 06:00 16 03/08/19 04:00 18 Pulse Ox Pulse Ox 03/08/19 12:18 03/08/19 10:28 97 03/08/19 10:10 03/08/19 10:08 03/08/19 09:24 03/08/19 08:00 98 03/08/19 06:00 03/08/19 04:00 96 Weight Weight 150 lb 5.684 oz Most Recent Monitor Data Heart Rate from ECG 83 NIBP 167/88 NIBP BP-Mean 114 Respiration from ECG 15 SpO2 94 I&O: 03/07/19 03/08/19 03/09/19 06:59 06:59 06:59 Intake Total 760 Output Total 3142 Balance -2382 Result Diagrams: 03/08/19 11:16 03/07/19 09:50 Additional Labs: Accuchecks 03/07/19 23:54 POC Glucose 88 Hospitalist ROS - Medication Medications: Active Medications Generic Name Dose Route Start Last Admin Trade Name Freq PRN Reason Stop Dose Admin Aspirin 325 mg 03/08/19 09:00 03/08/19 10:09 Ecotrin PO 325 mg DAILY SAILAJA Administration Carvedilol 12.5 mg 03/08/19 11:30 03/08/19 12:18 Coreg PO 03/08/19 13:30 12.5 mg NOW SAILAJA Administration Enoxaparin Sodium 30 mg 03/08/19 09:00 03/08/19 10:08 Lovenox SC 30 mg 0900 SAILAJA Administration Famotidine 20 mg 03/08/19 09:00 03/08/19 10:09 Pepcid PO 20 mg DAILY SAILAJA Administration Hydralazine HCl 100 mg 03/08/19 09:00 03/08/19 10:10 Apresoline PO 100 mg TID SAILAJA Administration Isosorbide Mononitrate 30 mg 03/08/19 11:30 03/08/19 12:19 Imdur Er PO 03/08/19 13:30 30 mg NOW SAILAJA Administration Nifedipine 60 mg 03/08/19 09:00 03/08/19 10:10 Procardia Xl PO 60 mg DAILY SAILAJA Administration - Exam General Appearance: awake alert General - other findings: no distress Eye: anicteric sclera ENT: normocephalic atraumatic, moist mucosa Heart: RRR Respiratory: no wheezes, no ronchi Respiratory - other findings: fair air entry with some scattered crackles Gastrointestinal: soft, non-tender, non-distended, normal bowel sounds Extremities: no cyanosis, no edema Neurological: no new deficit, hemiplegia Psychiatric: normal affect, A&O x 3 Hosp A/P (1) Acute respiratory failure with hypoxia Code(s): J96.01 - ACUTE RESPIRATORY FAILURE WITH HYPOXIA Status: Acute (2) Acute heart failure Code(s): I50.9 - HEART FAILURE, UNSPECIFIED Status: Acute (3) Uncontrolled hypertension Code(s): I10 - ESSENTIAL (PRIMARY) HYPERTENSION Status: Acute (4) Elevated troponin Code(s): R74.8 - ABNORMAL LEVELS OF OTHER SERUM ENZYMES Status: Acute (5) Demand ischemia of myocardium Code(s): I24.8 - OTHER FORMS OF ACUTE ISCHEMIC HEART DISEASE Status: Acute (6) ESRD (end stage renal disease) Code(s): N18.6 - END STAGE RENAL DISEASE Status: Acute (7) Diabetes mellitus Code(s): E11.9 - TYPE 2 DIABETES MELLITUS WITHOUT COMPLICATIONS Status: Chronic (8) Hyperlipidemia Code(s): E78.5 - HYPERLIPIDEMIA, UNSPECIFIED Status: Chronic (9) Pulmonary infiltrate Code(s): R91.8 - OTHER NONSPECIFIC ABNORMAL FINDING OF LUNG FIELD Status: Acute - Plan DC antibiotics as pneumonia is unlikely given normal procalcitonin. Add imdur 30 mg daily and increase coreg to 25 bid to get adequate BP control. Awaiting echo can be transfered to Telemetry. Continue other treatments.
--- NOTE | 2019-03-08 19:23 | CON ---
DATE OF CONSULTATION: 03/08/2019 SERVICE: Pulmonary Medicine. REASON FOR CONSULTATION: [facility] patient. HISTORY OF PRESENT ILLNESS: The patient is a 58-year-old male with past medical history significant for end-stage renal disease. He does hemodialysis. I am told that he is compliant. Either way, he was in his usual state of health when he woke up on the morning of the 2nd. He stood up and started walking around and shortly thereafter had an abrupt onset of severe shortness of breath. He has had one of these episodes occurs remotely. It occurred in the middle of the night. At that point, it went nearly as severe. He was able to sit up on the side of the bed for an hour and then go back to sleep without much difficulty. Either way, he denies having any fevers or chills. He is coughing up pink frothy sputum. Yesterday, he got emergent dialysis, and his respiratory discomfort has immediately resolved. Additionally, he has been weaned off oxygen and is back on room air. PAST MEDICAL HISTORY: 1. Hypertension. 2. Dyslipidemia. 3. End-stage renal disease, on hemodialysis. 4. Type 2 diabetes mellitus. 5. Neuropathy secondary to diabetes. 6. History of cerebrovascular accident with right-sided hemiparesis. 7. Cervical spondylosis with radiculopathy. PAST SURGICAL HISTORY: 1. C-spine surgery. 2. Colonoscopy. 3. AV fistula creation of the right forearm. FAMILY HISTORY: Noncontributory. SOCIAL HISTORY: Negative for current alcohol, tobacco, or illicit drug use. 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 He is a lifelong nonsmoker and denies any exposure to chemicals, dust, asbestos, or tuberculosis. ALLERGIES: TRAMADOL. MEDICATIONS: List of the patient's inpatient medications was reviewed. No specific updates were made at this time. REVIEW OF SYSTEMS: General, head, ears, eyes, nose, throat, cardiovascular, respiratory, GI, , musculoskeletal, neurologic, and skin is negative except as mentioned in the HPI. PHYSICAL EXAMINATION: VITAL SIGNS: Afebrile with a T-max of 99.2, pulse 83, blood pressure 167/88, respirations 15, saturation 94%, currently on room air. GENERAL: The patient is awake and alert, in no apparent distress. LUNGS: Decent air entry with no prolonged expiratory phase or wheezing. Dependent crackles are noted. HEART: Normal rate. Regular. ABDOMEN: Soft, nontender, and nondistended. Bowel sounds are positive. MUSCULOSKELETAL: No cyanosis or clubbing. No pitting in the bilateral lower extremities. NEUROLOGIC: Grossly nonfocal. LABORATORY DATA: WBC 6.1, hemoglobin 10.4, platelets 186,000. A pH 7.44, pCO2 of 41, pO2 of 63 when he was wearing 50% FiO2. BNP 2200. Troponin is downtrending to 0.047. Procalcitonin is unremarkable. Lactate is negative. Creatinine 9.12, but otherwise, basic metabolic profile and liver function studies are essentially unremarkable. Blood cultures x2 are negative to date. IMAGING DATA: CT of the chest demonstrates a left lower lobe infiltrate corresponding to the original chest x-ray's infiltrate in the left base. He also has interstitial fullness, enlarged left atrium, and signs of vascular congestion. There appears to be fluid both in the major fissure as well as the minor fissure. Bilateral pleural effusions are small. ASSESSMENT: 1. Acute hypoxic respiratory failure secondary to volume overload, resolved. 2. [id number] diastolic heart failure, suspected. 3. [id number] myocardial infarction secondary to demand, resolving. 4. End-stage renal disease. DISCUSSION AND PLAN: My suspicion is that this was a hypertensive event. Now that we got the fluid off him and his blood pressure is under good control, he has been weaned all the way down to room air. At this point, he is stable for transition to the medical unit. We will follow up on the results of the echocardiogram. If his ejection fraction is reduced or he has severe valvular abnormalities, Cardiology consultation will be considered. At this point, he has no further requirements for inpatient Pulmonary or Critical Care opinion, so when he lands on the floor, I will sign off. If he develops increasing signs of sepsis, I would encourage a 5-day course of antibiotic directed at healthcare-associated pathogens. 70 minutes have been devoted to this patient in various activities. I personally reviewed all imaging studies and laboratory data noted within this document. For fifty percent of this time, I was interacting with the patient at the bedside or coordinating care with the care team. For the remainder of the time I was immediately available to the patient in the hospital unit. Job ID: [id number] [facility]
[2019-03-08] MEDS: Carvedilol 25 MG TAB PO SCH (21:15)
[2019-03-08] MEDS: Heparin 5,000 UNITS/ML VIAL SC SCH (21:16)
[2019-03-09 08:45] VITALS: BP 154/86; TEMP 98.2
[2019-03-09] MEDS ORDERED: Isosorbide Mononitrate (ER) 30 MG TAB PO SCH (09:00)
[2019-03-09] MEDS: NIFEdipine XL 60 MG TAB PO SCH (09:30)
[2019-03-09] MEDS: Carvedilol 25 MG TAB PO SCH (09:31)
[2019-03-09] MEDS: Aspirin 325 mg Enteric Coated Tablet PO SCH (09:31)
[2019-03-09] MEDS: hydrALAZINE 25 MG TAB PO SCH (09:31)
[2019-03-09] MEDS: Famotidine 20 MG TAB PO SCH (09:31)
[2019-03-09] MEDS: Heparin 5,000 UNITS/ML VIAL SC SCH (09:32)
--- NOTE | 2019-03-09 11:32 | PRG ---
DATE OF SERVICE: SUBJECTIVE: Patient was seen and examined at bedside and overnight events noted. Patient denies any shortness of breath or chest pain or palpitation. No history of nausea or vomiting or diarrhea or fever or chills or cramps. OBJECTIVE: GENERAL: This is a well-built male, in no apparent distress. VITAL SIGNS: Temperature 98.2. Heart rate 82. Respiratory rate 18. Blood pressure 154/86. HEENT: Atraumatic, normocephalic. Oral mucosa is moist NECK: Supple. CARDIOVASCULAR: S1, S2 heard. Rate and rhythm regular. RESPIRATORY: Clear to auscultation. GASTROINTESTINAL: Abdomen is soft. MUSCULOSKELETAL: No tenderness. No edema. DERMATOLOGIC: No skin rash. NEUROLOGIC: Alert and awake and oriented X3. No focal neurologic deficits. Moving all the extremities. PSYCHIATRIC: Mood and affect normal. LABORATORY DATA: Not done today. ASSESSMENT AND PLAN: 1. End-stage renal disease. Continue dialysis on Thursday, , Thursday. 2. History of hypertension. 3. Edema, remove fluid. 4. Blood pressure medication adjusted. Blood pressure seems to be better, but he has a tendency to drop during dialysis. We will have close monitoring of blood pressure. Advised to monitor at home too. We will continue to remove fluid if tolerated. The patient did admit to having increased fluid intake over the weekend due to a wedding. We will follow. Job ID: [id number]
--- NOTE | 2019-03-09 15:11 | PDOC.HOSPP ---
- Subjective Encounter Date: 03/09/19 Encounter Time: 15:08 Subjective: No new problem. - Objective Vital Signs & Weight: Vital Signs (12 hours) Temp Pulse Resp BP BP Pulse Ox 03/09/19 09:31 82 03/09/19 09:30 82 154/86 H 03/09/19 08:39 98.2 F 82 18 154/86 H 90 L 03/09/19 04:40 98.8 F 67 20 146/67 H 95 Weight Weight 162 lb 14.4 oz Most Recent Monitor Data Heart Rate from ECG 82 NIBP 147/73 NIBP BP-Mean 97 Respiration from ECG 17 SpO2 94 I&O: 03/08/19 03/09/19 03/10/19 06:59 06:59 06:59 Intake Total 760 240 Output Total 3142 Balance -2382 240 Result Diagrams: 03/08/19 11:16 03/07/19 09:50 Hospitalist ROS - Medication Medications: Active Medications Generic Name Dose Route Start Last Admin Trade Name Freq PRN Reason Stop Dose Admin Aspirin 325 mg 03/08/19 09:00 03/09/19 09:31 Ecotrin PO 325 mg DAILY SAILAJA Administration Carvedilol 25 mg 03/08/19 21:00 03/09/19 09:31 Coreg PO 25 mg BID SAILAJA Administration Famotidine 20 mg 03/08/19 09:00 03/09/19 09:31 Pepcid PO Not Given DAILY SAILAJA Heparin Sodium (Porcine) 5,000 units 03/08/19 21:00 03/09/19 09:32 Heparin SC 5,000 units BID SAILAJA Administration Hydralazine HCl 100 mg 03/08/19 09:00 03/09/19 09:31 Apresoline PO 100 mg TID SAILAJA Administration Isosorbide Mononitrate 30 mg 03/09/19 09:00 03/09/19 09:31 Imdur Er PO 30 mg DAILY SAILAJA Administration Nifedipine 60 mg 03/08/19 09:00 03/09/19 09:30 Procardia Xl PO 60 mg DAILY SAILAJA Administration Hosp A/P (1) Acute respiratory failure with hypoxia Code(s): J96.01 - ACUTE RESPIRATORY FAILURE WITH HYPOXIA Status: Acute (2) Acute heart failure Code(s): I50.9 - HEART FAILURE, UNSPECIFIED Status: Acute (3) Uncontrolled hypertension Code(s): I10 - ESSENTIAL (PRIMARY) HYPERTENSION Status: Acute (4) Elevated troponin Code(s): R74.8 - ABNORMAL LEVELS OF OTHER SERUM ENZYMES Status: Acute (5) Demand ischemia of myocardium Code(s): I24.8 - OTHER FORMS OF ACUTE ISCHEMIC HEART DISEASE Status: Acute (6) ESRD (end stage renal disease) Code(s): N18.6 - END STAGE RENAL DISEASE Status: Acute (7) Diabetes mellitus Code(s): E11.9 - TYPE 2 DIABETES MELLITUS WITHOUT COMPLICATIONS Status: Chronic (8) Hyperlipidemia Code(s): E78.5 - HYPERLIPIDEMIA, UNSPECIFIED Status: Chronic (9) Pulmonary infiltrate Code(s): R91.8 - OTHER NONSPECIFIC ABNORMAL FINDING OF LUNG FIELD Status: Acute (10) Cardiomyopathy Code(s): I42.9 - CARDIOMYOPATHY, UNSPECIFIED Status: Acute Qualifiers: Cardiomyopathy type: unspecified Qualified Code(s): I42.9 - Cardiomyopathy , unspecified - Plan Discharged today in line with patient and spouse request. they dont want to wait to be seen by chemist physical prefering to see PCP who will then send them to a chemist physical. Discharge summary dictated. #[id number]
--- NOTE | 2019-03-09 15:51 | DIS ---
DATE OF ADMISSION: 03/07/2019 DATE OF DISCHARGE: 03/09/2019 PRIMARY CARE PHYSICIAN: Dr. Torin Shearer. DISCHARGE DIAGNOSES: 1. Acute respiratory failure with hypoxia. 2. Acute systolic heart failure. 3. Uncontrolled hypertension. 4. Cardiomyopathy with EF of 35% to 40%, new onset. 5. Elevated troponin. 6. Presumed demand ischemia of the myocardium. 7. Diabetes mellitus. 8. End-stage renal disease, on hemodialysis, Thursday, , Thursday. 9. Hyperlipidemia. 10. Pulmonary infiltrate. CONSULTS: Nephrology. HOSPITAL COURSE: A 58-year-old male with known history of CVA with right-sided residual hemiparesis, end-stage renal disease on hemodialysis, admitted due to acute onset of shortness of breath and difficulty breathing associated with diaphoresis, but no fever or prior ill feeling. The patient was found to be hypoxic by EMS when they arrived with SpO2 in 76%, hence was started on oxygen supplementation. On presentation to the emergency room, the patient was found to be hypertensive with systolic blood pressure above 200. He later decompensated and was started on BiPAP. Chest x-ray showed pulmonary infiltrates as well as mild pleural effusion suggestive of possible pneumonia, and the patient was started on broad-spectrum antibiotic therapy for possible pneumonia. Further evaluation with BNP showed elevated BNP above 2000, one mild elevation in troponin. Impression of flash pulmonary edema was subsequently made. It was felt that the patient may have coronary artery disease or it could be due to uncontrolled hypertension. Nephrology consult was obtained and the patient subsequently had emergent dialysis with improvement in condition and oxygen was subsequently weaned off. Procalcitonin was obtained and this was normal, hence antibiotics were also discontinued. Further evaluation with echocardiogram showed new onset cardiomyopathy with ejection fraction of 35% to 40%. Cardiology consult was requested, but before Cardiology could see the patient, the patient and spouse requested to be discharged that they do not want to wait for Cardiology consult. I did explain to them that what happened before could happen again and that it is important for the patient to be evaluated further to ascertain the cause of flash pulmonary edema that is possible he could have a significant coronary artery disease. The patient and spouse in this case were insistent on leaving, preferring to follow up with primary care physician for further evaluation and treatment. The patient remained stable and was off oxygen and was subsequently discharged according to the their request. PHYSICAL EXAMINATION: VITAL SIGNS: Temperature 98.2, pulse 82, respiratory rate 18, SpO2 of 90% on room air, blood pressure is 154/86. GENERAL: Comfortable, middle-aged male, in no distress. Afebrile. Anicteric. Acyanotic. HEENT: Normocephalic and atraumatic. Oral mucosa is moist. CARDIOVASCULAR: Regular rhythm and rate with normal heart sounds 1 and 2. RESPIRATORY: Fair air entry bilaterally with few bibasilar crackles posteriorly. No use of accessory muscles appreciated. GI: Abdomen is full, soft, nontender, nondistended with normal bowel sounds. EXTREMITIES: Right-sided hemiparesis noted. YARD BRAKEMAN: Conscious, alert and oriented x3 with appropriate mental status. Cranial nerves 2 through 12 are grossly intact. Right-sided hemiparesis noted. The patient walks with a cane. DISCHARGE DISPOSITION: Home. DISCHARGE CONDITION: Improved. DISCHARGE MEDICATIONS: 1. Aspirin 325 mg p.o. daily. 2. Calcium acetate 667 mg p.o. t.i.d. with meals. 3. Cholecalciferol 2000 units p.o. daily. 4. Fluticasone propionate nasal spray two sprays to each nares daily. 5. Humalog 15 units subcutaneously b.i.d. with meals. 6. Hydralazine 100 mg p.o. t.i.d. 7. Hydrocodone/acetaminophen 1 tablet p.o. q.6 p.r.n. 8. Levemir 5 units subcutaneously b.i.d. 9. Nifedipine 60 mg p.o. daily. 10. Prednisone 20 mg p.o. daily. 11. Lipitor 40 mg p.o. daily. 12. Carvedilol 25 mg p.o. b.i.d. 13. Isosorbide mononitrate 30 mg p.o. daily. FOLLOWUP: The patient is to follow up with PCP in 1 week with a view to getting onward referral to a horse racer of his choice. TIME SPENT: This discharge took more than 40 minutes. Job ID: [id number]
== END 2019-03-09 15:48 | disposition home or self-care (01) | DRG 291 ==
LOC: ERS 09:15 → IMCU/EMU 12:33 → ERS 16:54 → T4-B 03-08 18:16
PROVIDERS: ADMIT Internal Medicine Nephrology; ATTEND Internal Medicine Nephrology
PROC: 5A1D70Z Performance of Urinary Filtration, Intermittent, Less than 6 Hours Per Day (ICD-10-PCS; principal; 2019-03-07)
PROC: 5A09457 Assistance with Respiratory Ventilation, 24-96 Consecutive Hours, Continuous Positive Airway Pressure (ICD-10-PCS; 2019-03-07)
DX: I13.2 Hypertensive heart and chronic kidney disease with heart failure and with stage 5 chronic kidney disease, or end stage renal disease (principal); J96.01 Acute respiratory failure with hypoxia; I50.21 Acute systolic (congestive) heart failure; N18.6 End stage renal disease; I24.8 Other forms of acute ischemic heart disease; I69.351 Hemiplegia and hemiparesis following cerebral infarction affecting right dominant side; R65.10 Systemic inflammatory response syndrome (SIRS) of non-infectious origin without acute organ dysfunction; I42.9 Cardiomyopathy, unspecified; E11.22 Type 2 diabetes mellitus with diabetic chronic kidney disease; Z99.2 Dependence on renal dialysis; R74.8 Abnormal levels of other serum enzymes; E78.5 Hyperlipidemia, unspecified; R91.8 Other nonspecific abnormal finding of lung field; R40.2142 Coma scale, eyes open, spontaneous, at arrival to emergency department; R40.2252 Coma scale, best verbal response, oriented, at arrival to emergency department; R40.2362 Coma scale, best motor response, obeys commands, at arrival to emergency department; E11.21 Type 2 diabetes mellitus with diabetic nephropathy; E11.40 Type 2 diabetes mellitus with diabetic neuropathy, unspecified; D63.1 Anemia in chronic kidney disease
CPT/HCPCS: 36415; 36416; 71045; 71260; 80053; 80202; 82553; 82805; 83605; 83880; 84145; 84484; 85025; 87040; 90935; 93005; 93306; 94640; 94660; 94760; 96365; 96367; 96375; 96376; G0257; J0360; J1644; J1650; J1956; J2543; J3370; J7611; J7620; Q9966

== ENCOUNTER 2019-04-27 07:54 | Outpatient (CLI) | payer MEDICARE ==
[2019-04-27 10:40] LABS: Mean Corpuscular HGB CONC 31.8 g/dL (32.0-36.0); Mean Corpuscular Hemoglobin 28.4 pg (27.0-31.0); Mean Corpuscular Volume 89.3 fL (78.0-98.0); Mean Platelet Volume 8.8 fL (7.4-10.4); Platelet Count 136 thou/uL (130-400); RBC Distribution Width 13.6 % (11.5-14.5); Red Blood Cell (RBC) Count 3.87 mill/uL (4.70-6.10); White Blood Cell (WBC) Count 6.5 thou/uL (4.8-10.8)
[2019-04-27 10:59] LABS: Cardiac Risk 3.2 (Less than 4.5)
[2019-04-27 11:01] LABS: ALT (SGPT) Less than 7 U/L (8-55); AST (SGOT) 13 U/L (5-34); Albumin 4.5 g/dL (3.5-5.0); Alkaline Phosphatase 55 U/L (40-110); Anion Gap 20 mmol/L (10-20); BUN (Urea Nitrogen) 31 mg/dL (8.4-25.7); Bilirubin, Total 0.4 mg/dL (0.2-1.2); Calc. Creatinine Clearance 0 mL/min (70-130); Calcium 9.5 mg/dL (7.8-10.44); Carbon Dioxide 28 mmol/L (22-29); Chloride 97 mmol/L (98-107); Estimated GFR-MDRD 8; Globulin 3.4 g/dL (2.4-3.5); Glucose 155 mg/dL (70-105); Potassium 4.6 mmol/L (3.5-5.1); Protein, Total 7.9 g/dL (6.0-8.3); Sodium 140 mmol/L (136-145)
[2019-04-27 11:27] LABS: INR-International Normal Ratio 1.1; PTT 33.2 SEC (22.9-36.1); Prothrombin Time 14.2 SEC (12.0-14.7)
== END 2019-04-27 07:55 | disposition home or self-care (01) ==
LOC: LABBT 07:54 → EDSTATUS 09:30
PROVIDERS: ATTEND Internal Medicine Cardiovascular Disease
DX: Z01.818 Encounter for other preprocedural examination (principal); R94.39 Abnormal result of other cardiovascular function study
CPT/HCPCS: 80053; 80061; 80307; 85027; 85610; 85730; 93005; 93010; G0483

== ENCOUNTER → 2019-05-04 | Day surgery (SDC) | payer MEDICARE ==
[2019-04-27 09:56] VITALS: BMI 23.7
[~2019-05-04] MED LIST: Iopamidol 370 76% 100 ML VIAL ONE; Lidocaine 1% (PF) 30 ML VIAL ONE; hydrALAZINE 20 MG/ML VIAL ONE
--- NOTE | 2019-05-04 13:03 | DIS ---
DATE OF ADMISSION: 05/04/2019 DATE OF DISCHARGE: 05/04/2019 INDICATION: He was admitted to undergo elective cardiac catheterization after he was found to have an abnormal stress test. He also has a history of hypertension and history of end-stage renal disease, on hemodialysis. His ejection fraction by echocardiogram was about 35% to 40%. He was advised to undergo cardiac catheterization to rule out evidence for underlying coronary artery disease. His other diagnoses include other than the end-stage renal disease, hypertension, dyslipidemia, mild peripheral vascular disease, and type 2 diabetes. DISCHARGE DIAGNOSES: He was admitted to undergo elective cardiac catheterization after he was found to have an abnormal stress test. He also has a history of hypertension and history of end-stage renal disease, on hemodialysis. His ejection fraction by echocardiogram was about 35% to 40%. He was advised to undergo cardiac catheterization to rule out evidence for underlying coronary artery disease. His other diagnoses include other than the end-stage renal disease, hypertension, dyslipidemia, mild peripheral vascular disease, and type 2 diabetes. He had no significant coronary artery disease. He does have cardiomyopathy with decrease in left ventricular systolic function. DISCHARGE MEDICATIONS: Include 1. Nifedipine ER osmotic release 60 mg tablets once a day. 2. Coreg 12.5 mg b.i.d. 3. Isosorbide mononitrate 30 mg daily. 4. Hydrocodone/acetaminophen 10/325 once a day. 5. Aspirin 325 mg a day. 6. Simvastatin 10 mg a day. 7. Vitamin D3. 8. Prednisone 20 mg a day. 9. Calcium acetate 667 mg two tablets with meals three times a day. 10. Humalog insulin 100 units/mL solution as directed. 11. Levemir 100 units/mL solution as directed. 12. Hydralazine 10 mg tablets 3 times a day. FOLLOWUP: His followup will be with me in about one month in the office. He will continue his routine followup with Dr. Torin Shearer and also with the desk director for his hemodialysis. PROCEDURE IN HOSPITAL: Included cardiac catheterization, left ventriculogram, and coronary arteriography. HOSPITAL COURSE: This 58-year-old gentleman, who had a long history of hypertension, had had some history of drug abuse in the past, but stopped in 2002. He also has history of tobacco abuse and alcohol use. He has been on dialysis for the last two years. He presented after complaining of increasing shortness of breath and was found to have decreased left ventricular systolic function. Stress test was performed and was found to have some abnormalities. He was advised to undergo a cardiac catheterization. He was taken to the cardiac petroleum refinery laborer, where he underwent the procedure today without difficulties or complications. He was found to have only mild plaque formation in the left circumflex and a very small nondominant right coronary artery and a large left anterior descending artery, which wraps around the apex of left ventricle. There was no evidence of significant stenosis, though there was some mild plaque in the mid left circumflex. Left ventricular systolic function again shows ejection fraction about 35% to 40%. The inferior wall appears to be somewhat more hypokinetic than the anterior wall. He tolerated the procedure well. There were no difficulties or complications. If he remains stable, he will be discharged to home in the next 3 to 4 hours and will continue his followups with Dr. Shearer, with the desk director for dialysis, and myself in approximately 1 month. He will see me in a month. He will see the other ones as directed. Job ID: [id number]
== END ==
LOC: CCL 05:42
PROVIDERS: ATTEND Internal Medicine Cardiovascular Disease
PROC: 4A023N7 Measurement of Cardiac Sampling and Pressure, Left Heart, Percutaneous Approach (ICD-10-PCS; principal; 2019-05-04)
PROC: B2111ZZ Fluoroscopy of Multiple Coronary Arteries using Low Osmolar Contrast (ICD-10-PCS; 2019-05-04)
DX: I25.10 Atherosclerotic heart disease of native coronary artery without angina pectoris (principal); I25.83 Coronary atherosclerosis due to lipid rich plaque; I12.0 Hypertensive chronic kidney disease with stage 5 chronic kidney disease or end stage renal disease; E11.22 Type 2 diabetes mellitus with diabetic chronic kidney disease; N18.6 End stage renal disease; E78.5 Hyperlipidemia, unspecified; F19.11 Other psychoactive substance abuse, in remission; Z87.891 Personal history of nicotine dependence; Z79.4 Long term (current) use of insulin; Z79.82 Long term (current) use of aspirin; Z79.899 Other long term (current) drug therapy; Z88.5 Allergy status to narcotic agent; Z99.2 Dependence on renal dialysis
CPT/HCPCS: 36416; 93458; C1769; J0360; J1644; J2001; Q9967

== ENCOUNTER 2019-07-08 15:33 | Inpatient (IN) | payer MEDICARE ==
[2019-07-08 16:17] LABS: #Eosinphils 0.1 thou/uL (0.0-0.7); #Monocytes 0.4 thou/uL (0.11-0.59); #Neutrophils 4.4 thou/uL (1.40-6.50); %Basophils 0.5 % (0.0-1.0); %Eosinophils 2.1 % (0.0-10.0); %Lymphocytes 16.2 % (21.0-51.0); %Neutrophils 74.3 % (42.0-75.0); Hemoglobin 13.3 g/dL (14.0-18.0); Mean Corpuscular HGB CONC 31.9 g/dL (32.0-36.0); Mean Corpuscular Hemoglobin 29.2 pg (27.0-31.0); Mean Corpuscular Volume 91.7 fL (78.0-98.0); Mean Platelet Volume 9.3 fL (7.4-10.4); Platelet Count 130 thou/uL (130-400); RBC Distribution Width 15.5 % (11.5-14.5); Red Blood Cell (RBC) Count 4.56 mill/uL (4.70-6.10); White Blood Cell (WBC) Count 5.9 thou/uL (4.8-10.8)
--- NOTE | 2019-07-08 16:21 | RAD ---
XR Chest 1 View Portable History: Dyspnea Comparison: Radiograph March 08, 2019 Findings: Large bilateral layering effusions some increased comparison exam. Dense left basilar opaci ty. Likely fluid right minor fissure. No pneumothorax. Heart size is markedly enlarged. Impression: There is a decompensated congestive heart failure with concern for superimposed left lowe r lobe pneumonia.
[2019-07-08 16:24] LABS: Analyzer IN Cardio ER; Base Excess (BEa) 0.9 mEq/L (-2.0 to +3.0); CO2 Tension 43.3 mmHg (35.0-45.0); Calcium, Ionized 1.13 mmol/L (1.12-1.30); Carboxyhemoglobin (COHb) 1.6 gm% (0.0-3.0); Hemoglobin (Hb) 13.5 g/dL (14.0-18.0); Potassium - ABG Lab 4.45 mmol/L (3.70-5.30)
[2019-07-08 16:25] LABS: O2 Tension (PaO2) 52.3 mmHg (80.0-100.0); Puncture Site LRA
[2019-07-08 16:26] LABS: ALV-art Gradient 178.775 (0-20)
[2019-07-08 16:37] LABS: ALT (SGPT) Less than 7 U/L (8-55); AST (SGOT) 14 U/L (5-34); Albumin 3.8 g/dL (3.5-5.0); Alkaline Phosphatase 61 U/L (40-110); Anion Gap 16 mmol/L (10-20); BUN (Urea Nitrogen) 26 mg/dL (8.4-25.7); Bilirubin, Total 0.5 mg/dL (0.2-1.2); Calc. Creatinine Clearance 0 mL/min (70-130); Carbon Dioxide 28 mmol/L (22-29); Chloride 98 mmol/L (98-107); Estimated GFR-MDRD 9; Globulin 3.3 g/dL (2.4-3.5); Glucose 205 mg/dL (70-105); Potassium 4.5 mmol/L (3.5-5.1); Protein, Total 7.1 g/dL (6.0-8.3); Sodium 137 mmol/L (136-145)
[2019-07-08 16:57] LABS: CKMB 1.1 ng/mL (0-6.6)
[2019-07-08] MEDS ORDERED: Acetaminophen 325 MG TAB PO PRN (18:54)
[2019-07-08] MEDS ORDERED: Dextrose 50% Abboject 50 ML SYRINGE SLOW IVP PRN (19:14)
[2019-07-08] MEDS ORDERED: HumaLOG 300 UNITS/3 ML VIAL SC PRN (19:14)
[2019-07-08] MEDS ORDERED: Dextrose 5% in Water 1,000 ML IV PRN (19:14)
[2019-07-08 19:48] LABS: HBSAg Index 0.19 S/CO (0-0.99); Hep B Surf Ag Non-Reactive S/CO (NonReactive)
--- NOTE | 2019-07-08 21:04 | HP ---
CHIEF COMPLAINT: Shortness of breath. HISTORY OF PRESENT ILLNESS: This patient is a 58-year-old male, who presented via the emergency department. The patient reported that he had the onset of shortness of breath that started yesterday following an episode of dialysis. The patient was here in April and had volume overload. Said he was familiar with how that felt and felt like he was in that same situation again and was getting too much fluid on his lungs. He has had progression, felt like he has had some rattling in his chest. Therefore, he presented to the emergency department. He has been hypoxic and required oxygen and ultimately back on BiPAP. REVIEW OF SYSTEMS: The patient reports he does still make some urine. He has not missed any dialysis. He has had no fevers or chills. He has been eating and drinking and ultimately all other systems reviewed and all pertinent positives and negatives noted above. PAST MEDICAL HISTORY: Notable for hypertension; hyperlipidemia; end-stage renal disease, on hemodialysis; diabetes with diabetic nephropathy; prior CVA with some right-sided residual weakness; and cervical spondylosis with radiculopathy. PAST SURGICAL HISTORY: C-spine surgery, colonoscopy, and right hand AV fistula creation. FAMILY HISTORY: Reviewed, nothing contributory. SOCIAL HISTORY: The patient is a nonsmoker, nondrinker, and nondrug user. He is . He is full code and his would be his surrogate decision maker should that become necessary. ALLERGIES: NONE. MEDICATIONS: 1. Aspirin 81 mg daily. 2. Simvastatin 10 mg daily. 3. Vitamin D3 of 2000 units daily. 4. Prednisone 20 mg daily. 5. Carvedilol 12.5 mg b.i.d. 6. Calcium acetate 667 mg p.o. t.i.d. 7. Nifedipine 60 mg daily. 8. Flonase 50 mcg inhaled nasally daily. 9. Humalog 10 units subcutaneous b.i.d. 10. Levemir 5 units subcutaneous daily apparently p.r.n. 11. Hydralazine 100 mg t.i.d. PHYSICAL EXAMINATION: VITAL SIGNS: BP 191/103, pulse 70, respirations 22, O2 saturations 93% on BiPAP. GENERAL APPEARANCE: Age-appropriate male. He is lying in the bed in the emergency department, wearing the BiPAP mask. He is awake, alert, pleasant, and cooperative. HEENT: NICHELLE, muddy sclerae. No acute lesions. NECK: Supple and symmetric. HEART: Regular rate and rhythm without murmurs, gallops, or rubs. LUNGS: Have bilateral diffuse rales with no wheezing. ABDOMEN: Soft, nontender, and nondistended. EXTREMITIES: No cyanosis, clubbing, or edema. Has a little bit of atrophy on the right. PSYCH: Normal affect and behavior. NEUROLOGIC: Again noted weakness on the right side with a foot drop brace present. LABORATORY DATA: White count 5.7, hemoglobin 13.3, platelets 130. Sodium 137, potassium 4.5, chloride 98, CO2 is 28, BUN 26, creatinine 7.46, glucose 205, calcium 9, AST 14, ALT is 7, alkaline phosphatase 51. Troponin 0.047. Chest x-ray shows decompensated heart failure with concern for possible left lower lobe pneumonia. ABG shows pH 7.40, pO2 is 52, O2 saturation 86.8, pCO2 is 43, bicarb is 26. EKG shows some nonspecific T-wave abnormalities, otherwise sinus rhythm. IMPRESSION AND PLAN: 1. Acute hypoxic respiratory failure secondary to volume overload. Continue BiPAP until volume overload is addressed. 2. Acute volume overload secondary to combination of end-stage renal disease and congestive heart failure. He has been assessed by Nephrology and will be going straight away to emergent hemodialysis. I suspect he will be able to come off the BiPAP and hopefully go to the medical floor. 3. Congestive heart failure with decompensation, systolic, acute on chronic. The patient had similar findings in April, at that time had an echocardiogram, revealing an ejection fraction of 35% to 40%. He opted not to stay and wait for Cardiology evaluation. We will go ahead and obtain a repeat echocardiogram now and consult Cardiology. 4. End-stage renal disease. Again, the patient will go to dialysis. We will continue with his usual home medications including the vitamin D3, the calcium acetate. 5. Hypertension should improve somewhat with dialysis. Continue carvedilol and prednisone. 6. Hyperlipidemia. Continue statin. 7. Diabetes. Needs some clarity on his home regimen. In the meantime, we will keep him on sliding scale. Job ID: [id number]
[2019-07-08] MEDS: hydrALAZINE 25 MG TAB PO SCH (21:05)
[2019-07-08] MEDS: Simvastatin 5 MG TAB PO SCH (21:07)
[2019-07-08] MEDS: Famotidine 20 MG TAB PO SCH (21:07)
--- NOTE | 2019-07-08 21:11 | CON ---
DATE OF CONSULTATION: 07/08/2019 CONSULTING PHYSICIAN: REASON FOR CONSULTATION: End-stage renal disease evaluation. REASON FOR ADMISSION: Shortness of breath. HISTORY OF PRESENT ILLNESS: This is a 58-year-old male with history of end-stage renal disease, hypertension, hyperlipidemia, came to the hospital with shortness of breath. He gets dialysis Thursday, , Thursday, had dialysis today, but remains fluid overloaded. Chest x-ray with fluid overload. PAST MEDICAL HISTORY: Positive for end-stage renal disease, coronary artery disease, hypertension, hyperlipidemia, vitamin D3 deficiency, hyperphosphatemia, type 2 diabetes. PAST SURGICAL HISTORY: Dialysis access placement, neck surgery. HOME MEDICATIONS: Reviewed. ALLERGIES: TRAMADOL. SOCIAL HISTORY: No smoking, alcohol, or drugs. FAMILY HISTORY: No history of kidney disease. REVIEW OF SYSTEMS: CONSTITUTIONAL: Negative for weight loss or gain, ability to conduct usual activities. SKIN: Negative for rash, itching. EYES: Negative for double vision, pain. ENT/MOUTH: Negative for nose bleeding, neck stiffness, pain, tenderness. CARDIOVASCULAR: Negative for palpitations, dyspnea on exertion, orthopnea. RESPIRATORY: Negative for shortness of breath, wheezing, cough, hemoptysis, fever or night sweats. GASTROINTESTINAL: Negative for poor appetite, abdominal pain, heartburn, nausea, vomiting, constipation, or diarrhea. GENITOURINARY: Negative for urgency, frequency, dysuria, nocturia. MUSCULOSKELETAL: Negative for pain, swelling. NEUROLOGIC/PSYCHIATRIC: Negative for anxiety, depression. ALLERGY/IMMUNOLOGIC: Negative for skin rash, bleeding tendency. PHYSICAL EXAMINATION: GENERAL: This is a well-built male, in no apparent distress. VITAL SIGNS: Temperature 97.7, pulse 70, respiratory rate 22, blood pressure 190/103. HEENT: Atraumatic and normocephalic. Oral mucosa is moist. NECK: Supple. CV: S1, S2 heard. Rate and rhythm regular. RESPIRATORY: Clear. GASTROINTESTINAL: Abdomen is soft. MUSCULOSKELETAL: 1+ edema. DERMATOLOGIC: No skin rash. NEUROLOGICAL: Alert and awake. PSYCHIATRIC: Normal mood and affect. LABORATORY DATA: Potassium 4.5, BUN 26, creatinine is 7.4. Hemoglobin is 13.3. ASSESSMENT AND PLAN: 1. End-stage renal disease. We will have emergent dialysis due to fluid overload. 2. Acute hypoxic respiratory failure. We will have fluid removal with dialysis. 3. Edema. Remove fluid. 4. History of hypertension. Titrate medications and we will remove fluid with dialysis. 5. Plan is to have 3 hours of dialysis with 3 L off and we will plan for another session tomorrow 3 to 3-1/2 to remove 2 to 3 L off as tolerated. Continue close monitoring. Limit fluid intake and salt intake. We will follow. Thank you for the consult. Job ID: [id number]
[2019-07-09] MEDS: Heparin 5,000 UNITS/ML VIAL SC SCH ×3 (00:22→20:46)
[2019-07-09 04:04] LABS: #Lymphocytes 0.6 thou/uL (1.20-3.40); #Monocytes 0.1 thou/uL (0.11-0.59); #Neutrophils 2.1 thou/uL (1.40-6.50); %Basophils 0.4 % (0.0-1.0); %Eosinophils 0.3 % (0.0-10.0); %Lymphocytes 20.8 % (21.0-51.0); %Monocytes 5.1 % (0.0-10.0); %Neutrophils 73.5 % (42.0-75.0); Hemoglobin 13.4 g/dL (14.0-18.0); Mean Corpuscular HGB CONC 31.3 g/dL (32.0-36.0); Mean Corpuscular Hemoglobin 28.2 pg (27.0-31.0); Mean Corpuscular Volume 90.3 fL (78.0-98.0); Mean Platelet Volume 9.7 fL (7.4-10.4); Platelet Count 136 thou/uL (130-400); RBC Distribution Width 15.4 % (11.5-14.5); Red Blood Cell (RBC) Count 4.73 mill/uL (4.70-6.10); White Blood Cell (WBC) Count 2.8 thou/uL (4.8-10.8)
[2019-07-09 04:33] LABS: Anion Gap 18 mmol/L (10-20); BUN (Urea Nitrogen) 17 mg/dL (8.4-25.7); Calc. Creatinine Clearance 15 mL/min (70-130); Calcium 9.1 mg/dL (7.8-10.44); Carbon Dioxide 27 mmol/L (22-29); Chloride 98 mmol/L (98-107); Estimated GFR-MDRD 14; Glucose 124 mg/dL (70-105); Sodium 139 mmol/L (136-145)
[2019-07-09] MEDS ORDERED: predniSONE 20 MG TAB PO SCH (08:00)
[2019-07-09] MEDS ORDERED: NIFEdipine XL 60 MG TAB PO SCH (09:00)
[2019-07-09] MEDS: Calcium Acetate 667 MG CAP PO SCH ×3 (10:18→17:55)
[2019-07-09] MEDS: hydrALAZINE 25 MG TAB PO SCH ×3 (10:18→20:46)
[2019-07-09] MEDS: Fluticasone Propionate Nasal Spray 16 gm Bottle NASAL SCH (10:19)
[2019-07-09] MEDS: Aspirin 81 mg Enteric Coated Tablet PO SCH (10:19)
[2019-07-09] MEDS: Carvedilol 25 MG TAB PO SCH ×2 (10:19→17:56)
[2019-07-09 13:28] VITALS: BMI 19.4
--- NOTE | 2019-07-09 14:45 | PRG ---
DATE OF SERVICE: 07/09/2019 SUBJECTIVE: Patient was seen and examined at bedside and overnight events noted. Patient denies any shortness of breath or chest pain or palpitation. No history of nausea or vomiting or diarrhea or fever or chills or cramps. OBJECTIVE: GENERAL: This is a well-built male, in no apparent distress. VITAL SIGNS: Temperature 97.8. Heart rate 70. Respiratory rate 16. Blood pressure 160/86. HEENT: Atraumatic, normocephalic. Oral mucosa is moist NECK: Supple. CARDIOVASCULAR: S1, S2 heard. Rate and rhythm regular. RESPIRATORY: Clear to auscultation. GASTROINTESTINAL: Abdomen is soft. MUSCULOSKELETAL: No tenderness. No edema. DERMATOLOGIC: No skin rash. NEUROLOGIC: Alert and awake and oriented X3. No focal neurologic deficits. Moving all the extremities. PSYCHIATRIC: Mood and affect normal. LABORATORY DATA: Potassium is 4.0, BUN is 17, and creatinine is 5.1. ASSESSMENT AND PLAN: 1. End-stage renal disease. We will continue hemodialysis as tolerated on Thursday, , and Thursday. 2. Edema. 3. Hypertension. 4. Anemia. 5. The patient had dialysis yesterday, tolerated well, feeling better. Job ID: [id number]
--- NOTE | 2019-07-09 15:40 | PDOC.HOSPP ---
- Subjective Encounter Date: 07/09/19 Encounter Time: 09:30 Subjective: Patient seen and examined for Resp failure. No CP. SOB improving. No new complaints. No overnight events - Objective Vital Signs & Weight: Vital Signs (12 hours) Temp Pulse BP Pulse Ox 07/09/19 10:18 91 162/82 H 07/09/19 08:00 97.8 F 96 07/09/19 04:00 98.0 F 98 Weight Admit Weight 139 lb Weight 139 lb 5.314 oz Most Recent Monitor Data Heart Rate from ECG 78 NIBP 160/86 NIBP BP-Mean 110 Respiration from ECG 16 SpO2 98 I&O: 07/08/19 07/09/19 07/10/19 06:59 06:59 06:59 Intake Total 600 Balance 600 Result Diagrams: 07/09/19 03:34 07/09/19 03:34 Additional Labs: Accuchecks 07/09/19 07/09/19 07/08/19 12:30 05:56 21:10 POC Glucose 156 H 105 135 H EKG Reviewed by me: Yes (Tele SR) Hospitalist ROS - Review of Systems Respiratory: reports: SOB with excertion. denies: cough, dry, shortness of breath, hemoptysis, pleuritic pain, sputum, wheezing, other Cardiovascular: denies: chest pain, palpitations, orthopnea, paroxysmal noc. dyspnea, edema, light headedness, other - Medication Medications: Active Medications Generic Name Dose Route Start Last Admin Trade Name Freq PRN Reason Stop Dose Admin Aspirin 81 mg 07/09/19 09:00 07/09/19 10:19 Ecotrin PO 81 mg DAILY SAILAJA Administration Calcium Acetate 667 mg 07/09/19 08:00 07/09/19 12:40 Phoslo PO 667 mg TID- SAILAJA Administration Carvedilol 12.5 mg 07/09/19 08:00 07/09/19 10:19 Coreg PO 12.5 mg BID-WM SAILAJA Administration Cholecalciferol 1,000 units 07/09/19 09:00 07/09/19 10:19 Vitamin D3 PO 1,000 units DAILY SAILAJA Administration Famotidine 20 mg 07/08/19 21:00 07/08/19 21:07 Pepcid PO 20 mg Q24HR SAILAJA Administration Fluticasone Propionate 0 gm 07/09/19 09:00 07/09/19 10:19 Flonase Nasal Russell NASAL Not Given DAILY SAILAJA Hydralazine HCl 100 mg 07/08/19 21:00 07/09/19 10:18 Apresoline PO 100 mg TID SAILAJA Administration Nifedipine 60 mg 07/09/19 09:00 07/09/19 10:18 Procardia Xl PO 60 mg DAILY SAILAJA Administration Prednisone 20 mg 07/09/19 08:00 07/09/19 10:19 Prednisone PO 20 mg QAM-WM SAILAJA Administration Simvastatin 10 mg 07/08/19 21:00 07/08/19 21:07 Zocor PO 10 mg HS SAILAJA Administration - Exam General Appearance: NAD Heart: RRR, no gallops, no rubs, normal peripheral pulses Respiratory: no wheezes, no rales, no ronchi, normal chest expansion Gastrointestinal: soft, non-tender, non-distended, normal bowel sounds Extremities: no cyanosis, no clubbing Neurological: no new deficit Psychiatric: normal affect, A&O x 3 Hosp A/P - Plan DVT proph w/heparin, DVT proph w/SCDs Acute respiratory failure with hypoxia s/p NIPPV Acute on chronic systolic HF exacerbation (POA) Volume overload ESRD on HD HTN DM2 Mild CAD Type 2 MS (POA) h/o CVA PLAN: Off NIPPV Dialysis per Nephrology Cont Hydralazine/Coreg and Procardia XL Cont other meds
[2019-07-09] MEDS: Famotidine 20 MG TAB PO SCH (20:46)
[2019-07-09] MEDS: Simvastatin 5 MG TAB PO SCH (20:47)
--- NOTE | 2019-07-09 21:01 | CON ---
DATE OF CONSULTATION: HISTORY OF PRESENT ILLNESS: The patient is a 58-year-old gentleman with a history of a cardiomyopathy, who presented with increasing dyspnea. The patient has a history of nonischemic cardiomyopathy, and underwent a cardiac catheterization 2 months ago. He was found to have moderate decrease in left ventricular systolic function with minimal coronary artery disease. The patient has been placed on medical therapy. He states he has been compliant with his medications. He presented with increasing dyspnea. The patient denied any chest discomfort. PAST MEDICAL HISTORY: 1. Cardiomyopathy. 2. End-stage renal disease. 3. History of CVA. 4. Hypertension. 5. Diabetes mellitus. PAST SURGICAL HISTORY: , and AV fistula. SOCIAL HISTORY: Nonsmoker. ALLERGIES: NO KNOWN DRUG ALLERGIES. MEDICATIONS: See nursing list. REVIEW OF SYSTEMS: Ten-point system otherwise unremarkable. FAMILY HISTORY: No strong family history of heart disease. PHYSICAL EXAMINATION: GENERAL: A well-developed gentleman, in no acute distress. VITAL SIGNS: Blood pressure 137/72. NECK: Showed no jugular venous distention. LUNGS: Clear to auscultation. HEART: Regular rate and rhythm with a normal S1 and S2. No murmurs. ABDOMEN: Nondistended. EXTREMITIES: He has an AV fistula. LABORATORY RESULTS: Sodium 139, potassium 4.0, chloride 98, bicarbonate 27, BUN 17, creatinine 1.5. Troponin was 0.047. His white blood cell count was 2.8, hemoglobin 13.4, hematocrit 42.8, platelets 136. EKG revealed normal sinus rhythm, nonspecific T-wave abnormality. His chest x-ray revealed cardiomegaly with pulmonary edema. IMPRESSION: 1. Congestive heart failure. 2. Cardiomyopathy. 3. Poorly controlled hypertension. 4. End-stage renal disease. 5. Diabetes mellitus. PLAN: This gentleman presents with congestive heart failure. A repeat echocardiogram reveals a marked decrease in left ventricular systolic function. We would recommend the patient be placed on Entresto for survival benefit. He also would benefit from being on BiDil. The patient should avoid calcium channel blockers. We will discontinue Nifedipine. We will follow this patient with you through his hospitalization. Job ID: [id number] [facility]
[2019-07-10] MEDS: Calcium Acetate 667 MG CAP PO SCH ×3 (09:13→18:30)
[2019-07-10] MEDS: Isosorbide Dinitrate 20 MG TAB PO SCH ×3 (09:14→20:41)
[2019-07-10] MEDS: Aspirin 81 mg Enteric Coated Tablet PO SCH (09:14)
[2019-07-10] MEDS: Carvedilol 25 MG TAB PO SCH ×2 (09:14→15:51)
[2019-07-10] MEDS: hydrALAZINE 25 MG TAB PO SCH ×3 (09:14→20:40)
[2019-07-10] MEDS: Heparin 5,000 UNITS/ML VIAL SC SCH ×2 (09:15→20:40)
[2019-07-10] MEDS: Fluticasone Propionate Nasal Spray 16 gm Bottle NASAL SCH (09:15)
[2019-07-10] MEDS: Sacubitril 49 MG/Valsartan 51 MG TABLET PO SCH ×2 (09:25→20:40)
[2019-07-10] MEDS ORDERED: HumaLOG 300 UNITS/3 ML VIAL SC PRN (13:33)
--- NOTE | 2019-07-10 13:35 | PDOC.HOSPP ---
- Subjective Encounter Date: 07/10/19 Encounter Time: 10:30 Subjective: Patient seen and examined for CHF. No CP. SOB improving. No new complaints. No overnight events - Objective Vital Signs & Weight: Vital Signs (12 hours) Temp Pulse BP Pulse Ox 07/10/19 11:10 97.4 F L 07/10/19 09:14 91 162/82 H 07/10/19 07:10 98.0 F 07/10/19 07:07 98 07/10/19 04:00 97.9 F Weight Admit Weight 139 lb Weight 139 lb 8 oz Most Recent Monitor Data Heart Rate from ECG 71 NIBP 156/87 NIBP BP-Mean 110 Respiration from ECG 16 SpO2 98 I&O: 07/09/19 07/10/19 07/11/19 06:59 06:59 06:59 Intake Total 600 1080 Output Total 2500 Balance 600 -1420 Result Diagrams: 07/09/19 03:34 07/09/19 03:34 Additional Labs: Accuchecks 07/10/19 07/10/19 07/09/19 10:38 06:23 20:45 POC Glucose 185 H 117 H 191 H 07/09/19 17:14 POC Glucose 139 H EKG Reviewed by me: Yes (Tele SR) Hospitalist ROS - Review of Systems Respiratory: reports: SOB with excertion. denies: cough, dry, shortness of breath, hemoptysis, pleuritic pain, sputum, wheezing, other Cardiovascular: denies: chest pain, palpitations, orthopnea, paroxysmal noc. dyspnea, edema, light headedness, other - Medication Medications: Active Medications Generic Name Dose Route Start Last Admin Trade Name Rajinder PRN Reason Stop Dose Admin Aspirin 81 mg 07/09/19 09:00 07/10/19 09:14 Ecotrin PO 81 mg DAILY SAILAJA Administration Calcium Acetate 667 mg 07/09/19 08:00 07/10/19 09:13 Phoslo PO 667 mg TID-WM SAILAJA Administration Carvedilol 12.5 mg 07/09/19 08:00 07/10/19 09:14 Coreg PO 12.5 mg BID-WM SAILAJA Administration Cholecalciferol 1,000 units 07/09/19 09:00 07/10/19 09:13 Vitamin D3 PO 1,000 units DAILY SAILAJA Administration Famotidine 20 mg 07/08/19 21:00 07/09/19 20:46 Pepcid PO 20 mg Q24HR SAILAJA Administration Fluticasone Propionate 0 gm 07/09/19 09:00 07/10/19 09:15 Flonase Nasal [place] NASAL Not Given DAILY SAILAJA Heparin Sodium (Porcine) 5,000 units 07/09/19 21:00 07/10/19 09:15 Heparin SC 5,000 units BID SAILAJA Administration Hydralazine HCl 100 mg 07/08/19 21:00 07/10/19 09:14 Apresoline PO 100 mg TID SAILAJA Administration Isosorbide Dinitrate 20 mg 07/10/19 09:00 07/10/19 09:14 Isordil PO 20 mg TID SAILAJA Administration Sacubitril/Valsartan 1 tab 07/10/19 09:00 07/10/19 09:25 Entresto 49 Mg-51 Mg Tablet PO 1 tab BID SAILAJA Administration Simvastatin 10 mg 07/08/19 21:00 07/09/19 20:47 Zocor PO 10 mg HS SAILAJA Administration - Exam General Appearance: NAD Heart: RRR, no gallops Respiratory: no wheezes, no rales, rhonchi Gastrointestinal: soft, non-tender, normal bowel sounds Extremities: no cyanosis Hosp A/P - Plan DVT proph w/heparin, DVT proph w/SCDs Acute respiratory failure with hypoxia s/p NIPPV Acute on chronic systolic HF exacerbation (POA) Volume overload ESRD on HD HTN DM2 Mild CAD Type 2 [place] (POA) h/o CVA PLAN: Cont Entresto Cont Hydralazine/Nitrates/Coreg Procardia XL dced Cont other meds Dialysis per Nephrology Await Lifevest
--- NOTE | 2019-07-10 16:24 | PRG ---
DATE OF SERVICE: 07/10/2019 SUBJECTIVE: Patient was seen and examined at bedside and overnight events noted. Patient denies any shortness of breath or chest pain or palpitation. No history of nausea or vomiting or diarrhea or fever or chills or cramps. OBJECTIVE: GENERAL: This is a well-built male, in no apparent distress. VITAL SIGNS: Temperature 97.4. Heart rate 71. Respiratory rate 16. Blood pressure 138/73. HEENT: Atraumatic, normocephalic. Oral mucosa is moist. NECK: Supple. CARDIOVASCULAR: S1, S2 heard. Rate and rhythm regular. RESPIRATORY: Clear to auscultation. GASTROINTESTINAL: Abdomen is soft. MUSCULOSKELETAL: No tenderness. No edema. DERMATOLOGIC: No skin rash. NEUROLOGIC: Alert and awake and oriented x3. No focal neurologic deficits. Moving all the extremities. PSYCHIATRIC: Mood and affect normal. LABORATORY DATA: Not done today. ASSESSMENT AND PLAN: 1. End-stage renal disease. Continue on hemodialysis as tolerated. 2. Edema, controlled. 3. Cardiorenal syndrome with fluid overload, better, but ejection fraction lower and Cardiology is following. 4. History of hypertension. 5. Anemia of chronic disease. We will continue on dialysis Thursday, , and Thursday as tolerated. Limit fluid and salt intake. Job ID: [id number]
[2019-07-10] MEDS: Famotidine 20 MG TAB PO SCH (20:40)
[2019-07-10] MEDS: Simvastatin 5 MG TAB PO SCH (20:41)
[2019-07-11 04:28] LABS: Anion Gap 15 mmol/L (10-20); BUN (Urea Nitrogen) 46 mg/dL (8.4-25.7); Calc. Creatinine Clearance 10 mL/min (70-130); Calcium 8.8 mg/dL (7.8-10.44); Carbon Dioxide 27 mmol/L (22-29); Chloride 96 mmol/L (98-107); Estimated GFR-MDRD 10; Glucose 133 mg/dL (70-105); Sodium 134 mmol/L (136-145)
[2019-07-11 06:49] LABS: Hemoglobin 13.1 g/dL (14.0-18.0); Mean Corpuscular HGB CONC 32.3 g/dL (32.0-36.0); Mean Corpuscular Hemoglobin 29.2 pg (27.0-31.0); Mean Corpuscular Volume 90.4 fL (78.0-98.0); Platelet Count 150 thou/uL (130-400); RBC Distribution Width 15.1 % (11.5-14.5); Red Blood Cell (RBC) Count 4.48 mill/uL (4.70-6.10); White Blood Cell (WBC) Count 4.2 thou/uL (4.8-10.8)
[2019-07-11 07:05] LABS: Anion Gap 13 mmol/L (10-20); BUN (Urea Nitrogen) 48 mg/dL (8.4-25.7); Calc. Creatinine Clearance 10 mL/min (70-130); Calcium 8.7 mg/dL (7.8-10.44); Carbon Dioxide 28 mmol/L (22-29); Chloride 96 mmol/L (98-107); Estimated GFR-MDRD 9; Glucose 131 mg/dL (70-105); Sodium 133 mmol/L (136-145)
[2019-07-11 07:33] LABS: Band 1 % (5-11); Eosinophils 2 % (0-10); Lymphocytes 40 % (21-51); MDiff Complete? YES; Monocytes 14 % (0-10); Neutrophil 43 % (42-75); Platelet Morphology Comment Appears Adequate; RBC Morphology Normal
[2019-07-11] MEDS: Calcium Acetate 667 MG CAP PO SCH ×3 (09:22→18:31)
[2019-07-11] MEDS: Carvedilol 25 MG TAB PO SCH ×2 (09:23→18:31)
[2019-07-11] MEDS: Aspirin 81 mg Enteric Coated Tablet PO SCH (09:24)
[2019-07-11] MEDS: hydrALAZINE 25 MG TAB PO SCH ×3 (09:25→19:41)
[2019-07-11] MEDS: Fluticasone Propionate Nasal Spray 16 gm Bottle NASAL SCH (09:25)
[2019-07-11] MEDS: Heparin 5,000 UNITS/ML VIAL SC SCH (09:25)
[2019-07-11] MEDS: Isosorbide Dinitrate 20 MG TAB PO SCH ×3 (09:26→19:41)
[2019-07-11] MEDS: Sacubitril 49 MG/Valsartan 51 MG TABLET PO SCH ×2 (09:26→19:41)
--- NOTE | 2019-07-11 12:14 | PDOC.CPN ---
- Subjective Date: 07/11/19 Time: 12:18 Interval history: The pt seen and examined. No overnight events. No cardiac complaints. - Objective Allergies/Adverse Reactions: Allergies Allergy/AdvReac Type Severity Reaction Status Date / Time tramadol Allergy Verified 07/08/19 22:18 Visit Medications: Current Medications Acetaminophen (Tylenol) 650 mg PO Q4H PRN PRN Reason: Headache/Fever/Mild Pain (1-3) Aspirin (Ecotrin) 81 mg PO DAILY [facility] Last Admin: 07/11/19 09:24 Dose: 81 mg Calcium Acetate (Phoslo) 667 mg PO TID-[facility] Last Admin: 07/11/19 09:22 Dose: 667 mg Carvedilol (Coreg) 12.5 mg PO BID-[facility] Last Admin: 07/11/19 09:23 Dose: 12.5 mg Cholecalciferol (Vitamin D3) 1,000 units PO DAILY [facility] Last Admin: 07/11/19 09:24 Dose: 1,000 units Dextrose/Water (Dextrose 50%) 25 gm SLOW IVP PRN PRN PRN Reason: Hypoglycemia Famotidine (Pepcid) 20 mg PO Q24HR [facility] Last Admin: 07/10/19 20:40 Dose: 20 mg Fluticasone Propionate (Flonase Nasal [place]) 0 gm NASAL DAILY [facility] Last Admin: 07/11/19 09:25 Dose: Not Given Glucagon (Glucagon) 1 mg IM PRN PRN PRN Reason: Hypoglycemia Heparin Sodium (Porcine) (Heparin) 5,000 units SC BID [facility] Last Admin: 07/11/19 09:25 Dose: 5,000 units Hydralazine HCl (Apresoline) 100 mg PO TID [facility] Last Admin: 07/11/19 09:25 Dose: 100 mg Dextrose/Water (D5w) 1,000 mls @ 0 mls/hr IV .Q0M PRN PRN Reason: Hypoglycemia Insulin Human Lispro (Humalog) 0 units SC .MILD SLIDING SCALE PRN PRN Reason: Mild Correctional Scale Insulin Human Lispro (Humalog) 0 units SC .BEDTIME SLIDING SC PRN PRN Reason: Bedtime Correctional Scale Isosorbide Dinitrate (Isordil) 20 mg PO TID [facility] Last Admin: 07/11/19 09:26 Dose: 20 mg Sacubitril/Valsartan (Entresto 49 Mg-51 Mg Tablet) 1 tab PO BID [facility] Last Admin: 07/11/19 09:26 Dose: 1 tab Simvastatin (Zocor) 10 mg PO HS [facility] Last Admin: 07/10/19 20:41 Dose: 10 mg Vital Signs & Weight: Vital Signs Temp Pulse Resp BP BP Pulse Ox 07/11/19 11:32 97.6 F 68 14 153/89 H 100 07/11/19 08:55 97.5 F L 70 18 128/65 100 07/11/19 07:10 97.5 F L 07/11/19 04:00 97.6 F Admit Weight 139 lb Weight 141 lb 2 oz - Physical Exam General: alert & oriented x3 HEENT: mucus membranes moist Neck: supple neck Cardiac: regular rate and rhythm, S1/S2 Lungs: clear to auscultation Extremities: no edema, other: (diminished pulses to BLE; the pt denied claudication;) - Labs Result Diagrams: 07/11/19 06:33 07/11/19 06:33 Troponin/CKMB CK-MB (CK-2) 1.1 ng/mL (0-6.6) 07/08/19 16:07 Troponin I 0.047 ng/mL (< 0.028) H 07/08/19 16:07 - Assessment/Plan Assessment/Plan: 1. Acute on chronic systolic HF with EF 25-30% - On Entresto, Coreg, and on HD; will d/c with LifeVest 2. HTN - stable 3. DM2 4. HLD - on Statin 5. ESRD on HD 6. h/o CVA with Rt side weakness MAR reviewed * Echo on 07/09/2019 with EF 25-30%, mildly dilated LA, mod MR, mild TR, small pericardial effusion * From Cardiac standpoint, the pt is stable to d/c home once he receives LifeVest. The pt will f/u with Dr Peralta' office within 2 wks. pt. seen and eval. by me. 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 Waiting on Life-Vest. Chest clear. RRR. no edema. gjmays
[2019-07-11 16:24] VITALS: TEMP 98.1
--- NOTE | 2019-07-11 17:06 | PRG ---
DATE OF SERVICE: 07/11/2019 SUBJECTIVE: Patient was seen and examined at bedside and overnight events noted. Patient denies any shortness of breath or chest pain or palpitation. No history of nausea or vomiting or diarrhea or fever or chills or cramps. OBJECTIVE: GENERAL: This is a well-built male, in no apparent distress. VITAL SIGNS: Temperature 98.1. Heart rate 66. Respiratory rate 18. Blood pressure 113/62. HEENT: Atraumatic, normocephalic. Oral mucosa is moist NECK: Supple. CARDIOVASCULAR: S1, S2 heard. Rate and rhythm regular. RESPIRATORY: Clear to auscultation. GASTROINTESTINAL: Abdomen is soft. MUSCULOSKELETAL: No tenderness. No edema. DERMATOLOGIC: No skin rash. NEUROLOGIC: Alert and awake and oriented X3. No focal neurologic deficits. Moving all the extremities. PSYCHIATRIC: Mood and affect normal. LABORATORY DATA: Potassium 4.0, BUN is 48, creatinine is 7.3. ASSESSMENT AND PLAN: 1. End-stage renal disease. Continue dialysis on Thursday, , and Thursday. 2. Edema, we will remove fluid. 3. Cardiorenal syndrome. 4. Hypertension. 5. Anemia of chronic disease. Follow with Cardiology for further plans. Limit fluid intake and we will continue dialysis as tolerated. Job ID: [id number]
--- NOTE | 2019-07-11 18:36 | PDOC.HOSPP ---
- Subjective Encounter Date: 07/11/19 Encounter Time: 12:30 Subjective: Patient seen and examined for CHF. No new complaints. No overnight events - Objective Vital Signs & Weight: Vital Signs (12 hours) Temp Pulse Resp BP BP BP Pulse Ox 07/11/19 15:38 98.1 F 66 13 113/62 98 07/11/19 15:01 65 149/71 H 07/11/19 11:32 97.6 F 68 14 153/89 H 100 07/11/19 08:55 97.5 F L 70 18 128/65 100 07/11/19 07:10 97.5 F L Weight Admit Weight 139 lb Weight 141 lb 2 oz Most Recent Monitor Data Heart Rate from ECG 69 NIBP 172/89 NIBP BP-Mean 116 Respiration from ECG 14 SpO2 98 I&O: 07/10/19 07/11/19 07/12/19 06:59 06:59 06:59 Intake Total 1080 1060 Output Total 2500 0 Balance -1420 1060 Result Diagrams: 07/11/19 06:33 07/11/19 06:33 Additional Labs: Accuchecks 07/11/19 07/11/19 07/11/19 17:09 10:46 06:27 POC Glucose 101 213 H 117 H 07/10/19 20:50 POC Glucose 169 H EKG Reviewed by me: Yes (Tele SR) Hospitalist ROS - Review of Systems Respiratory: denies: cough, dry, shortness of breath, hemoptysis, SOB with excertion, pleuritic pain, sputum, wheezing, other Cardiovascular: denies: chest pain, palpitations, orthopnea, paroxysmal noc. dyspnea, edema, light headedness, other - Medication Medications: Active Medications Generic Name Dose Route Start Last Admin Trade Name Freq PRN Reason Stop Dose Admin Aspirin 81 mg 07/09/19 09:00 07/11/19 09:24 Ecotrin PO 81 mg DAILY SAILAJA Administration Calcium Acetate 667 mg 07/09/19 08:00 07/11/19 18:31 Phoslo PO 667 mg TID-WM SAILAJA Administration Carvedilol 12.5 mg 07/09/19 08:00 07/11/19 18:31 Coreg PO 12.5 mg BID-WM SAILAJA Administration Cholecalciferol 1,000 units 07/09/19 09:00 07/11/19 09:24 Vitamin D3 PO 1,000 units DAILY SAILAJA Administration Famotidine 20 mg 07/08/19 21:00 07/10/19 20:40 Pepcid PO 20 mg Q24HR SAILAJA Administration Fluticasone Propionate 0 gm 07/09/19 09:00 07/11/19 09:25 Flonase Nasal [place] NASAL Not Given DAILY SAILAJA Heparin Sodium (Porcine) 5,000 units 07/09/19 21:00 07/11/19 09:25 Heparin SC 5,000 units BID SAILAJA Administration Hydralazine HCl 100 mg 07/08/19 21:00 07/11/19 15:01 Apresoline PO 100 mg TID SAILAJA Administration Insulin Human Lispro 0 units 07/08/19 19:14 07/11/19 13:06 Humalog SC 3 unit .MILD SLIDING SCALE PRN Administration Mild Correctional Scale Isosorbide Dinitrate 20 mg 07/10/19 09:00 07/11/19 15:02 Isordil PO 20 mg TID SAILAJA Administration Sacubitril/Valsartan 1 tab 07/10/19 09:00 07/11/19 09:26 Entresto 49 Mg-51 Mg Tablet PO 1 tab BID SAILAJA Administration Simvastatin 10 mg 07/08/19 21:00 07/10/19 20:41 Zocor PO 10 mg HS SAILAJA Administration - Exam General Appearance: NAD Heart: RRR, no gallops Respiratory: no wheezes, no rales Gastrointestinal: soft, non-distended Extremities: no cyanosis, no clubbing Hosp A/P - Plan DVT proph w/SCDs Acute respiratory failure with hypoxia s/p NIPPV Acute on chronic systolic HF exacerbation (POA) Volume overload ESRD on HD HTN DM2 Mild CAD Type 2 [place] (POA) h/o CVA PLAN: Cont Entresto/Hydralazine/Nitrates/Coreg Cont other meds Stable for discharge Await Lifevest Dialysis per Nephrology
[2019-07-11] MEDS: Simvastatin 5 MG TAB PO SCH (19:41)
[2019-07-11 19:43] VITALS: BP 147/78
--- NOTE | 2019-07-11 20:38 | DIS ---
DATE OF ADMISSION: 07/08/2019 DATE OF DISCHARGE: 07/11/2019 DISCHARGE DISPOSITION: Home. FOLLOWUP: 1. Follow up with primary care physician, Dr. Shearer as scheduled. 2. Follow up with Cardiology, Dr. Peralta. 3. Life Vest setup is pending at this time. The patient has been cleared by Cardiology for discharge without LifeVest. DISCHARGE MEDICATION: Procardia XL was discontinued. He was started on isosorbide dinitrate 20 mg 3 times daily as well as Entresto 49/51 one tablet b.i.d. All other home medications were left unchanged. BRIEF HOSPITAL COURSE: The patient is a 58-year-old male with chronic systolic heart failure, presented to the emergency room on 08 July 2019, with shortness of breath along with hypertensive urgency. His blood pressure in the emergency room was 209/100. Due to hypoxia, he was started on noninvasive positive-pressure ventilation. His symptoms gradually improved after hemodialysis. Repeat echocardiogram this admission showed ejection fraction of 25% to 30% with moderate mitral regurgitation, mild tricuspid regurgitation, mildly dilated left atrium with a small localized pericardial effusion. He was evaluated by Cardiology and was started on isosorbide dinitrate and Entresto. Procardia XL was discontinued. He was also evaluated by Nephrology for maintenance hemodialysis. LifeVest setup is pending at this time. The patient is requesting to be discharged. He understands the consequences of going home without LifeVest. He has been cleared by Cardiology for discharge without LifeVest. FINAL DIAGNOSES: 1. Acute hypoxic respiratory failure secondary to acute on chronic systolic heart failure exacerbation. 2. Volume overload. 3. End-stage renal disease, on hemodialysis. 4. Hypertension. 5. Diabetes mellitus type 2. 6. Mild coronary artery disease. 7. Type 2 myocardial infarction. 8. History of cerebrovascular accident. 9. Hyponatremia. Total time coordinating the discharge of this patient was 36 minutes. He was extensively counseled on congestive heart failure. Job ID: [id number]
== END 2019-07-11 20:45 | disposition home or self-care (01) | DRG 280 ==
LOC: ERS 15:33 → IMCU/EMU 18:21 → 2NO 07-11 08:56
PROVIDERS: ADMIT Internal Medicine; ATTEND Internal Medicine
PROC: 5A1D70Z Performance of Urinary Filtration, Intermittent, Less than 6 Hours Per Day (ICD-10-PCS; principal; 2019-07-08)
DX: I13.2 Hypertensive heart and chronic kidney disease with heart failure and with stage 5 chronic kidney disease, or end stage renal disease (principal); I50.23 Acute on chronic systolic (congestive) heart failure; I21.A1 Myocardial infarction type 2; N18.6 End stage renal disease; J96.01 Acute respiratory failure with hypoxia; E87.1 Hypo-osmolality and hyponatremia; I69.951 Hemiplegia and hemiparesis following unspecified cerebrovascular disease affecting right dominant side; E11.22 Type 2 diabetes mellitus with diabetic chronic kidney disease; Z99.2 Dependence on renal dialysis; Z79.4 Long term (current) use of insulin; I25.10 Atherosclerotic heart disease of native coronary artery without angina pectoris; E78.5 Hyperlipidemia, unspecified; E11.21 Type 2 diabetes mellitus with diabetic nephropathy; D64.9 Anemia, unspecified; I42.8 Other cardiomyopathies; I16.0 Hypertensive urgency
CPT/HCPCS: 36415; 36416; 71045; 80048; 80053; 82553; 82805; 84484; 85007; 85025; 85027; 87340; 93005; 93306; 93798; J1644; J7512

== ENCOUNTER 2023-05-04 03:52 | Inpatient (IN) | payer MEDICARE, OTHER ==
[2023-05-04 04:29] LABS: #Eosinphils 0.1 thou/uL (0.0-0.7); #Monocytes 0.7 thou/uL (0.11-0.59); %Basophils 0.4 % (0.0-1.0); %Eosinophils 1.7 % (0.0-10.0); %Lymphocytes 24.1 % (21.0-51.0); %Monocytes 8.7 % (0.0-10.0); %Neutrophils 64.8 % (42.0-75.0); Hematocrit 15.6 % (42.0-52.0); Mean Corpuscular HGB CONC 32.1 g/dL (32.0-36.0); Mean Corpuscular Hemoglobin 28.4 pg (27.0-31.0); Mean Corpuscular Volume 88.6 fl (78.0-98.0); Mean Platelet Volume 10.3 fL (7.4-10.4); Platelet Count 121 10x3/uL (130-400); RBC Distribution Width 15.6 % (11.5-14.5); Red Blood Cell (RBC) Count 1.76 mill/uL (4.70-6.10); White Blood Cell (WBC) Count 7.7 10x3/uL (4.8-10.8)
[2023-05-04] MEDS ORDERED: Pantoprazole 40 MG VIAL ONE (04:44)
[2023-05-04 04:56] LABS: ALT (SGPT) 8 U/L (8-55); AST (SGOT) 15 U/L (5-34); Albumin 3.9 g/dL (3.4-4.8); Alkaline Phosphatase 31 U/L (40-110); Anion Gap 22 mmol/L (10-20); BUN (Urea Nitrogen) 113 mg/dL (8.4-25.7); Bilirubin, Total 0.3 mg/dL (0.2-1.2); Calc. Creatinine Clearance 0 mL/min (70-130); Calcium 9.1 mg/dL (7.8-10.44); Carbon Dioxide 21 mmol/L (23-31); Chloride 100 mmol/L (98-107); Estimated GFR 5; Glucose 120 mg/dL (80-115); Protein, Total 5.9 g/dL (5.8-8.1); Sodium 138 mmol/L (136-145)
[2023-05-04] MEDS ORDERED: Ondansetron ODT 4 MG TAB SL PRN (05:30)
[2023-05-04] MEDS ORDERED: Ondansetron PF 4 MG/2 ML Vial IVP PRN (05:30)
[2023-05-04 07:52] LABS: HBSAg Index 0.18 S/CO (0-0.99); Hep B Surf Ag Non-Reactive S/CO (NonReactive)
[2023-05-04 07:59] LABS: HBSAB Concentration 271.11 mIU/mL; Hep B Core Total Ab Reactive (NonReactive); Hep B Core Total Index 7.92 S/CO (0-0.79); Hep B Surf AB Reactive (NonReactive); Hep C IgG Ab Reflex HepC Qnt S/CO (NonReactive); Hep C Index 14.11 S/CO (0-0.79)
[2023-05-04] MEDS ORDERED: Acetaminophen 325 MG TAB PO PRN (09:28)
[2023-05-04] MEDS ORDERED: Acetaminophen 650 MG Suppository PR PRN (09:28)
[2023-05-04] MEDS ORDERED: Glucagon 1 MG/ML KIT IM PRN (09:30)
[2023-05-04] MEDS ORDERED: Dextrose 50% Abboject 50 ML SYRINGE SLOW IVP PRN (09:30)
[2023-05-04] MEDS ORDERED: Dextrose 5% in Water 1,000 ML IV PRN (09:30)
[2023-05-04] MEDS ORDERED: HumaLOG 300 UNITS/3 ML VIAL SC PRN ×2 (09:30)
[2023-05-04] MEDS: Pantoprazole 80 MG, Admixture Fee 1 EACH in Sodium Chloride 0.9% 100 ML IVPB SCH ×2 (10:01→13:45)
[2023-05-04 11:14] VITALS: BMI 18.7
[2023-05-04 17:06] LABS: #Eosinphils 0.1 thou/uL (0.0-0.7); #Monocytes 0.8 thou/uL (0.11-0.59); #Neutrophils 6.2 thou/uL (1.40-6.50); %Basophils 0.2 % (0.0-1.0); %Eosinophils 1.2 % (0.0-10.0); %Lymphocytes 17.2 % (21.0-51.0); %Monocytes 9.2 % (0.0-10.0); %Neutrophils 71.7 % (42.0-75.0); Hematocrit 16.3 % (42.0-52.0); Hemoglobin 5.6 g/dL (14.0-18.0); Mean Corpuscular HGB CONC 34.4 g/dL (32.0-36.0); Mean Corpuscular Hemoglobin 28.3 pg (27.0-31.0); Mean Platelet Volume 10.4 fL (7.4-10.4); RBC Distribution Width 15.5 % (11.5-14.5); Red Blood Cell (RBC) Count 1.98 mill/uL (4.70-6.10); White Blood Cell (WBC) Count 8.6 10x3/uL (4.8-10.8)
[2023-05-04 17:08] LABS: Mean Corpuscular Volume 82.3 fl (78.0-98.0)
[2023-05-04 17:10] LABS: Platelet Count 99 10x3/uL (130-400)
[2023-05-04] MEDS ORDERED: Octreotide Acetate 100 MCG/ML VIAL SLOW IVP SCH (17:24)
[2023-05-04] MEDS ORDERED: Octreotide Acetate 1,250 MCG in Sodium Chloride 0.9% 250 ML 250 ML IVPB SCH (17:30)
[2023-05-04] MEDS ORDERED: Lidocaine 1% PF 5 ML VIAL ONE (20:01)
[2023-05-04] MEDS ORDERED: PROPOFOL 200 MG/20 ML VIAL ONE (20:01)
[2023-05-04] MEDS ORDERED: PHENYLEPHRINE-NS 100 MCG/ML 10 ML SYRINGE ONE (20:01)
[2023-05-04] MEDS ORDERED: Promethazine HCl 25 MG/ML VIAL IM PRN (20:11)
[2023-05-04] MEDS ORDERED: Ondansetron HCl/PF 4 MG/2 ML Vial IVP PRN (20:11)
[2023-05-04] MEDS ORDERED: Pantoprazole 40 MG VIAL IVP SCH (21:00)
[2023-05-04 21:49] LABS: #Basophils 0.1 thou/uL (0.0-0.2); #Eosinphils 0.1 thou/uL (0.0-0.7); #Monocytes 0.7 thou/uL (0.11-0.59); #Neutrophils 5.1 thou/uL (1.40-6.50); %Basophils 0.8 % (0.0-1.0); %Eosinophils 1.8 % (0.0-10.0); %Lymphocytes 21.5 % (21.0-51.0); %Neutrophils 66.6 % (42.0-75.0); Hematocrit 24.3 % (42.0-52.0); Hemoglobin 8.2 g/dL (14.0-18.0); Mean Corpuscular HGB CONC 33.7 g/dL (32.0-36.0); Mean Corpuscular Hemoglobin 28.6 pg (27.0-31.0); Mean Corpuscular Volume 84.7 fl (78.0-98.0); Mean Platelet Volume 10.7 fL (7.4-10.4); RBC Distribution Width 15.3 % (11.5-14.5); Red Blood Cell (RBC) Count 2.87 mill/uL (4.70-6.10); White Blood Cell (WBC) Count 7.7 10x3/uL (4.8-10.8)
[2023-05-04 21:53] LABS: Platelet Count 89 10x3/uL (130-400)
[2023-05-04] MEDS: Pantoprazole 40 MG VIAL IVP SCH (22:36)
[2023-05-05 04:28] LABS: #Eosinphils 0.1 thou/uL (0.0-0.7); #Monocytes 0.9 thou/uL (0.11-0.59); #Neutrophils 9.6 thou/uL (1.40-6.50); %Basophils 0.3 % (0.0-1.0); %Lymphocytes 7.2 % (21.0-51.0); %Monocytes 7.8 % (0.0-10.0); %Neutrophils 83.4 % (42.0-75.0); Hematocrit 24.2 % (42.0-52.0); Hemoglobin 8.4 g/dL (14.0-18.0); Mean Corpuscular HGB CONC 34.7 g/dL (32.0-36.0); Mean Corpuscular Hemoglobin 29.4 pg (27.0-31.0); Mean Corpuscular Volume 84.6 fl (78.0-98.0); Mean Platelet Volume 10.9 fL (7.4-10.4); Platelet Count 94 10x3/uL (130-400); RBC Distribution Width 14.9 % (11.5-14.5); Red Blood Cell (RBC) Count 2.86 mill/uL (4.70-6.10); White Blood Cell (WBC) Count 11.5 10x3/uL (4.8-10.8)
[2023-05-05 04:49] LABS: ALT (SGPT) 8 U/L (8-55); AST (SGOT) 21 U/L (5-34); Albumin 3.7 g/dL (3.4-4.8); Alkaline Phosphatase 33 U/L (40-110); Anion Gap 20 mmol/L (10-20); BUN (Urea Nitrogen) 73 mg/dL (8.4-25.7); Bilirubin, Total 0.4 mg/dL (0.2-1.2); Calc. Creatinine Clearance 9 mL/min (70-130); Calcium 8.6 mg/dL (7.8-10.44); Carbon Dioxide 22 mmol/L (23-31); Chloride 99 mmol/L (98-107); Estimated GFR 8; Glucose 107 mg/dL (80-115); Potassium 4.4 mmol/L (3.5-5.1); Protein, Total 5.7 g/dL (5.8-8.1); Sodium 137 mmol/L (136-145)
[2023-05-05] MEDS: Pantoprazole 40 MG VIAL IVP SCH ×2 (08:54→20:07)
[2023-05-05] MEDS: Epoetin (ESRD) 10,000 UNITS/ML VIAL IVP SCH (09:17)
[2023-05-05] MEDS ORDERED: Epoetin (ESRD) 10,000 UNITS/ML VIAL SC SCH (12:00)
[2023-05-05] MEDS ORDERED: Atorvastatin Calcium 40 MG TAB PO SCH (21:00)
[2023-05-06] MEDS: Pantoprazole 40 MG VIAL IVP SCH (07:33)
[2023-05-06] MEDS ORDERED: Aspirin 81 mg Enteric Coated Tablet PO SCH (09:00)
[2023-05-06] MEDS: Epoetin (ESRD) 10,000 UNITS/ML VIAL IVP SCH (13:47)
[2023-05-06 15:56] VITALS: BP 165/76; TEMP 97.8
[2023-05-07 01:12] LABS: Hep C PCR-Quant HCV Not Detected IU/mL (.)
== END 2023-05-06 17:40 | disposition home or self-care (01) | DRG 377 ==
LOC: ERS 03:52 → ERHOLD 05:24 → 2NO 10:53
PROVIDERS: ADMIT Student in an Organized Health Care Education/Training Program; ATTEND Internal Medicine
PROC: 0W3P8ZZ Control Bleeding in Gastrointestinal Tract, Via Natural or Artificial Opening Endoscopic (ICD-10-PCS; principal; 2023-05-04)
PROC: 0DB78ZX Excision of Stomach, Pylorus, Via Natural or Artificial Opening Endoscopic, Diagnostic (ICD-10-PCS; 2023-05-04)
PROC: 30233N1 Transfusion of Nonautologous Red Blood Cells into Peripheral Vein, Percutaneous Approach (ICD-10-PCS; 2023-05-04)
PROC: 5A1D70Z Performance of Urinary Filtration, Intermittent, Less than 6 Hours Per Day (ICD-10-PCS; 2023-05-06)
DX: K55.21 Angiodysplasia of colon with hemorrhage (principal); N18.6 End stage renal disease; D62 Acute posthemorrhagic anemia; I50.22 Chronic systolic (congestive) heart failure; I13.2 Hypertensive heart and chronic kidney disease with heart failure and with stage 5 chronic kidney disease, or end stage renal disease; I69.351 Hemiplegia and hemiparesis following cerebral infarction affecting right dominant side; E78.00 Pure hypercholesterolemia, unspecified; I25.10 Atherosclerotic heart disease of native coronary artery without angina pectoris; G89.29 Other chronic pain; E11.22 Type 2 diabetes mellitus with diabetic chronic kidney disease; E78.5 Hyperlipidemia, unspecified; E87.5 Hyperkalemia; K29.70 Gastritis, unspecified, without bleeding; K31.A0 Gastric intestinal metaplasia, unspecified; B19.20 Unspecified viral hepatitis C without hepatic coma; Z98.890 Other specified postprocedural states; Z88.8 Allergy status to other drugs, medicaments and biological substances; Z79.4 Long term (current) use of insulin; Z79.899 Other long term (current) drug therapy; Z79.82 Long term (current) use of aspirin; Z99.2 Dependence on renal dialysis
CPT/HCPCS: 36415; 36416; 36430; 76705; 80053; 82274; 85025; 86704; 86850; 86900; 86901; 87522; 88305; 88342; 90935; 93005; 96374; C9113; G0257; J2354; J2704; J3490; J7050; P9016; Q4081

== ENCOUNTER 2024-08-02 21:00 | Inpatient (IN) | payer OTHER ==
[~2024-08-02 21:00] MED LIST changes: -Iopamidol 370 76% 100 ML VIAL ONE; +Iopamidol-370 76% 500 ML MDV (1 ML CHARGE) ONE; -Lidocaine 1% (PF) 30 ML VIAL ONE; -hydrALAZINE 20 MG/ML VIAL ONE
[2024-08-02] MEDS ORDERED: Sodium Chloride 0.9% 100 ML ONE (22:38)
[2024-08-02] MEDS ORDERED: Cefepime 2 GM VIAL ONE (22:38)
[2024-08-02 22:58] LABS: #Basophils 0.04 10x3/uL (0.0-0.2); #Eosinophils Less than 0.03 10x3/uL (0.0-0.7); %Basophils 0.4 % (0.0-1.0); %Eosinophils 0.1 % (0.0-10.0); %Monocytes 6.5 % (0.0-10.0); %Neutrophils 86.6 % (42.0-75.0); Hematocrit 36.3 % (42.0-52.0); Hemoglobin 11.1 g/dL (14.0-18.0); Mean Corpuscular HGB CONC 30.6 g/dL (32.0-36.0); Mean Platelet Volume 9.5 fL (7.4-10.4); Platelet Count 173 10x3/uL (130-400); RBC Distribution Width 20.1 % (11.5-14.5); Red Blood Cell (RBC) Count 4.27 mill/uL (4.70-6.10)
[2024-08-02 23:02] LABS: Actual Bicarbonate (HCO3v) 26.9 mEq/L (22-28); Analyzer IN Cardio ER; Base Excess 1.6 mEq/L (-2.0 to +3.0); Calcium, Ionized (venous) 1.11 mmol/L (1.16-1.32); Chloride (VBG) 94 mmol/L (98-106); Hematocrit-VBG 37 % (42.0-52.0); Hemoglobin (Hb) 12.5 g/dL (13.1-17.2); Sodium 135 mmol/L (133-146); pH (venous) 7.393 (7.32-7.43)
[2024-08-02 23:15] LABS: INR-International Normal Ratio 1.3; PTT 38.9 sec (22.9-36.1); Prothrombin Time 15.9 sec (12.0-14.7)
[2024-08-02 23:22] LABS: Troponin I 0.197 ng/mL (< 0.028)
[2024-08-02 23:48] LABS: ALT (SGPT) 9 U/L (Less than 45); AST (SGOT) 52 U/L (11-34); Albumin 3.5 g/dL (3.1-4.5); Alkaline Phosphatase 58 U/L (40-110); Anion Gap 21 mmol/L (10-20); BUN (Urea Nitrogen) 29 mg/dL (8.4-25.7); Bilirubin, Total 0.3 mg/dL (0.3-1.2); Calc. Creatinine Clearance 0 mL/min (70-130); Calcium 9.4 mg/dL (7.8-10.44); Carbon Dioxide 22 mmol/L (23-31); Chloride 97 mmol/L (98-107); Estimated GFR 7; Globulin 4.5 g/dL (2.4-3.5); Glucose 170 mg/dL (80-115); Potassium 4.8 mmol/L (3.5-5.1); Sodium 135 mmol/L (136-145)
[2024-08-03] MEDS ORDERED: Vancomycin 1 GM/200 ML (FROZEN) BAG ONE (00:07)
[2024-08-03] MEDS ORDERED: Aspirin Chewable 81 MG TAB ONE (00:07)
[2024-08-03] MEDS ORDERED: Ondansetron PF 4 MG/2 ML Vial IVP PRN (00:57)
[2024-08-03 03:17] VITALS: BMI 18.7
[2024-08-03 05:14] LABS: Influenza A by NAA DETECTED (NotDetected); Influenza B by NAA Not Detected (NotDetected); SARS-CoV-2 NAA Rapid Test Not Detected (NotDetected)
[2024-08-03 05:49] LABS: #Basophils 0.04 10x3/uL (0.0-0.2); #Eosinophils Less than 0.03 10x3/uL (0.0-0.7); %Basophils 0.5 % (0.0-1.0); %Lymphocytes 12.3 % (21.0-51.0); %Monocytes 11.7 % (0.0-10.0); %Neutrophils 75.1 % (42.0-75.0); Hematocrit 33.4 % (42.0-52.0); Hemoglobin 10.2 g/dL (14.0-18.0); Mean Corpuscular HGB CONC 30.5 g/dL (32.0-36.0); Mean Platelet Volume 9.4 fL (7.4-10.4); Platelet Count 164 10x3/uL (130-400); RBC Distribution Width 19.9 % (11.5-14.5); Red Blood Cell (RBC) Count 3.93 mill/uL (4.70-6.10)
[2024-08-03 06:05] LABS: Chloride 97 mmol/L (98-107); Potassium 4.4 mmol/L (3.5-5.1); Sodium 136 mmol/L (136-145)
[2024-08-03 06:06] LABS: Calcium 9.1 mg/dL (7.8-10.44); Glucose 96 mg/dL (80-115)
[2024-08-03 06:08] LABS: Anion Gap 17 mmol/L (10-20); Carbon Dioxide 26 mmol/L (23-31)
[2024-08-03 06:10] LABS: BUN (Urea Nitrogen) 32 mg/dL (8.4-25.7); Calc. Creatinine Clearance 8 mL/min (70-130); Estimated GFR 7
[2024-08-03 06:16] LABS: Troponin I 0.504 ng/mL (< 0.028)
[2024-08-03] MEDS: Heparin 5,000 UNITS/ML VIAL SC SCH (08:27)
[2024-08-03] MEDS: Aspirin 81 mg Enteric Coated Tablet PO SCH (08:27)
[2024-08-03] MEDS: Doxycycline 100 MG in Sodium Chloride 0.9% 100 ML IVPB SCH (08:28)
[2024-08-03] MEDS: cefTRIAXone\\ROCEPHIN 1 GM in Sodium Chloride 0.9% 100 ML IVPB SCH (08:28)
[2024-08-03] MEDS: Oseltamivir 6 MG/ML ORAL SUSP PO SCH ×2 (08:32→18:26)
[2024-08-03] MEDS ORDERED: Heparin 10,000 UNITS/ 10 ML VIAL ONE (08:56)
[2024-08-03 09:00] LABS: Troponin I 0.533 ng/mL (< 0.028)
[2024-08-03] MEDS ORDERED: Oseltamivir 75 MG CAP PO SCH (09:00)
[2024-08-03 10:13] LABS: HBsAg Index 0.23 S/CO (0-0.99); Hep B Surf Ag NONREACTIVE S/CO (NonReactive)
[2024-08-03 10:14] LABS: HBSAB Concentration 336.72 mIU/mL; Hep B Surf AB REACTIVE (NonReactive); Hep C IgG Ab Reflex HepC Qnt S/CO (NonReactive)
[2024-08-03 10:15] LABS: Hep B Core Total Index 9.57 S/CO (0-0.79)
[2024-08-03 10:16] LABS: Hep B Core Total Ab REACTIVE (NonReactive)
[2024-08-03] MEDS: EPOETIN ALFA-EPBX (ESRD) 10,000 UNITS/ML VIAL IVP SCH (13:05)
[2024-08-03] MEDS: hydrALAZINE 10 MG TAB PO PRN (15:46)
[2024-08-03] MEDS: Acetaminophen 325 MG TAB PO PRN (18:28)
[2024-08-04 05:23] LABS: #Basophils 0.04 10x3/uL (0.0-0.2); %Basophils 0.9 % (0.0-1.0); %Eosinophils 1.3 % (0.0-10.0); %Lymphocytes 19.2 % (21.0-51.0); %Monocytes 17.7 % (0.0-10.0); %Neutrophils 60.7 % (42.0-75.0); Hematocrit 34.7 % (42.0-52.0); Hemoglobin 10.9 g/dL (14.0-18.0); Mean Corpuscular HGB CONC 31.4 g/dL (32.0-36.0); Mean Corpuscular Hemoglobin 26.4 pg (27.0-31.0); Platelet Count 163 10x3/uL (130-400); RBC Distribution Width 20.1 % (11.5-14.5); Red Blood Cell (RBC) Count 4.13 mill/uL (4.70-6.10)
[2024-08-04 06:17] LABS: Anion Gap 20 mmol/L (10-20); BUN (Urea Nitrogen) 24 mg/dL (8.4-25.7); Calc. Creatinine Clearance 10 mL/min (70-130); Calcium 9.8 mg/dL (7.8-10.44); Carbon Dioxide 25 mmol/L (23-31); Chloride 99 mmol/L (98-107); Estimated GFR 9; Glucose 95 mg/dL (80-115); Potassium 4.3 mmol/L (3.5-5.1); Sodium 140 mmol/L (136-145)
[2024-08-04 20:12] VITALS: BMI 18.7
[2024-08-05 05:03] LABS: #Basophils 0.04 10x3/uL (0.0-0.2); %Basophils 1.1 % (0.0-1.0); %Eosinophils 5.4 % (0.0-10.0); %Lymphocytes 33.2 % (21.0-51.0); %Monocytes 18.1 % (0.0-10.0); %Neutrophils 42.2 % (42.0-75.0); Hematocrit 34.3 % (42.0-52.0); Hemoglobin 10.8 g/dL (14.0-18.0); Mean Corpuscular HGB CONC 31.5 g/dL (32.0-36.0); Mean Corpuscular Hemoglobin 26.5 pg (27.0-31.0); Mean Corpuscular Volume 84.1 fL (78.0-98.0); Mean Platelet Volume 10.3 fL (7.4-10.4); Platelet Count 143 10x3/uL (130-400); RBC Distribution Width 19.9 % (11.5-14.5); Red Blood Cell (RBC) Count 4.08 mill/uL (4.70-6.10)
[2024-08-05 05:17] LABS: Anion Gap 20 mmol/L (10-20); BUN (Urea Nitrogen) 43 mg/dL (8.4-25.7); Calc. Creatinine Clearance 7 mL/min (70-130); Carbon Dioxide 24 mmol/L (23-31); Chloride 97 mmol/L (98-107); Estimated GFR 6; Glucose 90 mg/dL (80-115); Potassium 4.4 mmol/L (3.5-5.1); Sodium 137 mmol/L (136-145)
[2024-08-05 16:37] VITALS: TEMP 97.4
[2024-08-05 20:06] VITALS: BP 182/70
== END 2024-08-05 20:00 | disposition home or self-care (01) | DRG 193 ==
LOC: ERS 21:00 → ERHOLD 08-03 00:11 → MSONC 08-03 02:43 → T4-B 08-03 06:21 → 2NO 08-03 14:22
PROVIDERS: ADMIT Internal Medicine; ATTEND Family Medicine
DX: J10.01 Influenza due to other identified influenza virus with the same other identified influenza virus pneumonia (principal); J96.01 Acute respiratory failure with hypoxia; N18.6 End stage renal disease; I13.2 Hypertensive heart and chronic kidney disease with heart failure and with stage 5 chronic kidney disease, or end stage renal disease; I50.22 Chronic systolic (congestive) heart failure; I69.351 Hemiplegia and hemiparesis following cerebral infarction affecting right dominant side; E78.00 Pure hypercholesterolemia, unspecified; I25.10 Atherosclerotic heart disease of native coronary artery without angina pectoris; G89.29 Other chronic pain; M54.9 Dorsalgia, unspecified; E11.22 Type 2 diabetes mellitus with diabetic chronic kidney disease; D63.1 Anemia in chronic kidney disease; Z99.2 Dependence on renal dialysis; Z87.891 Personal history of nicotine dependence
CPT/HCPCS: 36415; 36416; 71045; 71275; 80048; 80053; 82805; 83605; 83880; 84145; 84484; 85025; 85610; 85730; 86704; 86706; 86803; 87040; 87340; 87522; 93005; 94760; J0692; J0696; J1644; J3370; Q5105; Q9967

== ENCOUNTER 2025-03-22 15:28 | Emergency (ER) | payer OTHER | END 2025-03-22 20:35 | disposition home or self-care (01) | LOC: ERS 15:28 | DX: T82.838A Hemorrhage due to vascular prosthetic devices, implants and grafts, initial encounter (principal); N18.6 End stage renal disease; I25.10 Atherosclerotic heart disease of native coronary artery without angina pectoris; E78.5 Hyperlipidemia, unspecified; Z99.2 Dependence on renal dialysis; Z79.899 Other long term (current) drug therapy; Z79.01 Long term (current) use of anticoagulants | CPT/HCPCS: 99284 ==